=== PATIENT | male | born 1985 | race Caucasian/White ===

== ENCOUNTER 2020-03-16 12:50 | Inpatient (IN) | payer OTHER ==
[2020-03-16] VITALS (14 sets, daily range): BP systolic 85–134; BP diastolic 49–76
[~2020-03-16] VITALS: Ht 182.9 cm; Wt 137.6 kg
[2020-03-16] MEDS ORDERED: ACETAMINOPHEN 325 MG TABLET. PO PRN (13:15)
[2020-03-16] MEDS ORDERED: ONDANSETRON PF 4 MG/2 ML VIAL. IVP PRN (13:15)
--- NOTE | 2020-03-16 13:16 | PDOC1 ---
History and Physical Date of Admission Date of Admission DATE: 03/16/20 TIME: 13:16 Identification/Chief Complaint Chief Complaint Confusion, vomiting Source Source: Caregiver, Chart review, Patient History of Present Illness History of Present Illness Mr Mallory is a 34-year-old male w/ PMHx HTN, morbid obesity who presents to [place] [facility] with 3-day history of nausea vomiting. Patient was drinking 10-12 drinks per day of alcohol up until 3 days ago when the symptoms began. Patient denies any diarrhea or abdominal pain. Patient feels anxious and tremulous. Patient denies any fevers chills cough or exposure to COVID-19. Symptoms are worse with drinking and not better with anything. He has a long history of alcohol abuse dating back to college where he did quit temporarily when he took a semester of college. He has been drinking 10-12 beers since then until the end of 2018 when he was able to quit for 3 months but with the loss of his job and COVID-19 has started drinking very heavily again. He notes he was also drinking because he has had some pain and numbness and tingling in the posterior aspect of his right thigh that does not go below the knee. EKG normal sinus rhythm with rate [address] changes normal intervals Labs significant for WBC 12.7, Hb 16.1, platelets 291 MCV 101, bilirubin 3, AST 193, ALT 119, magnesium 0.9, calcium 10.2, sodium 115, K3.1, BUN 21, CR 1.9. Patient will need ICU monitoring IV fluids and electrolyte replacement. Past Medical History Cardiovascular: HTN Past Surgical History Past Surgical History: No pertinent history Family History Family History: Hypertension Social History Smoke: No ALCOHOL: heavy Drugs: None Allergies Allergies: Coded Allergies: cefaclor (Verified Allergy, Intermediate, Unknown, 03/16/20) ROS General: YES: Fatigue, Malaise; No: Chills, Night Sweats, Appetite, Other PSYCHOLOGICAL ROS: YES: Anxiety, Concentration difficultie, Memory difficulties ; No: Behavioral Disorder, Decreased libido, Depression, Disorientation, Hallucinations, Hostility, Irritablity, Mood Swings, Obsessive thoughts, Physical abuse, Sexual abuse, Sleep disturbances, Suicidal ideation, Other Eyes: No Blurry vision, No Decreased vision, No Double vision, No Dry eyes, No Excessive tearing, No Eye Pain, No Itchy Eyes, No Loss of vision, No Photophobia, No Scotomata, No Uses contacts, No Uses glasses, No Other HEENT: No: Heacaches, Visual Changes, Hearing change, Nasal congestion, Nasal discharge, Oral lesions, Sinus pain, Sore Throat, Epistaxis, Sneezing, Snoring, Tinnitus, Vertigo, Vocal changes, Other ALLERGY AND IMMUNOLOGY: No: Hives, Insect Bite Sensitivity, Itchy/Watery Eyes, Nasal Congestion, Post Nasal Drip, Seasonal Allergies, Other Hematological and Lymphatic: No: Bleeding Problems, Blood Clots, Blood Transfusions, Brusing, Night Sweats, Pallor, Swollen Lymph Nodes, Other ENDOCRINE: No: Breast Changes, Galactorrhea, Hair Pattern Changes, Hot Flashes, Malaise/lethargy, Mood Swings, Palpitations, Polydipsia/polyuria, Skin Changes, Temperature Intolerance, Unexpected Weight Changes, Other Breast: No New/Changing Breast Lumps, No Nipple changes, No Nipple discharge, No Other Respiratory: No: Cough, Hemoptysis, Orthopnea, Pleuritic Pain, Shortness of breath, SOB with excertion, Sputum Changes, Stridor, Tachypnea, Wheezing, Other Cardiovascular: No Chest Pain, No Palpitations, No Orthopnea, No Paroxysmal Noc. Dyspnea, No Edema, No Lt Headedness, No Other Gastrointestinal: Yes Nausea, Yes Vomiting; No Abdominal Pain, No Diarrhea, No Constipation, No Melena, No Hematochezia, No Other Genitourinary: No Dysuria, No Frequency, No Incontinence, No Hematuria, No Retention, No Discharge, No Urgency, No Pain, No Flank Pain, No Other, No , No , No , No , No , No , No Musculoskeletal: No Gait Disturbance, No Joint Pain, No Joint Stiffness, No Joint Swelling, No Muscle Pain, No Muscular Weakness, No Pain In:, No Swelling In:, No Other Neurological: No Behavorial Changes, No Bowel/Bladder ControlChng, No Confusion, No Dizziness, No Gait Disturbance, No Headaches, No Impaired Coord/balance, No Memory Loss, No Numbness/Tingling, No Seizures, No Speech Problems, No Tremors, No Visual Changes, No Weakness, No Other Skin: No Dry Skin, No Eczema, No Hair Changes, No Lumps, No Mole Changes, No Mottling, No Nail Changes, No Pruritus, No Rash, No Skin Lesion Changes, No Other, No Acne Physical Exam General: Alert, Cooperative, mild distress HEENT: Atraumatic, PERRLA, EOMI, Mucous membr. moist/pink Lungs: Clear to auscultation, Normal air movement Heart: S1S2, RRR, no thrills, no rubs, no gallops, no murmurs Abdomen: Normal bowel sounds, Soft, No tenderness, No hepatosplenomegaly, No masses Male Genitals Exam: normal genitalia, normal prostate Rectal Exam: not examined Extremities: No clubbing, No cyanosis, No edema, Normal pulses, No tenderness/swelling Skin: No rashes, No breakdown, No significant lesion Neuro: Normal gait, Normal speech, Strength at 5/5 X4 ext, Normal tone, Sensation intact, Cranial nerves 3-12 NL, Reflexes 2+ Psych/Mental Status: Other (Confused) VTE Prophylaxis Ordered VTE Prophylaxis Devices: No VTE Pharmacological Prophylaxi: No Assessment/Plan Assessment/Plan A/P: Acute metabolic encephalopathy -multifactorial secondary to mild alcohol withdrawal and hyponatremia as well as hypomagnesemia. NED -likely vasomotor nephropathy. Will monitor renal function after hydration Transaminitis - consistent with alcoholic hepatitis. Will monitor. Leukocytosis - likely reactive secondary to vomiting. Will monitor Hyponatremia - Likely alcohol related (beer potomania). Will obtain CT head given confusion as well. NSS ordered. Will consult nephrology Hypokalemia -likely related to concomitant diuretic use while drinking heavy alcohol. Will replace Hypomagnesemia - as above. Alcohol withdrawal - mild, will monitor on CIWA scale. Consult PAT team for moderate alcohol use disorder FEN - Regular diet PPX - ambulatory, low risk, scds FULL CODE Dispo - ICU for life-threatening electrolyte abnormalities CC time 48 Justifications for Admission Other Justification FRANCI BASS MD Mar 16, 2020 13:16
[2020-03-16] MEDS ORDERED: MAGNESIUM SULFATE 2GM 50 ML IV ONE (14:00)
[2020-03-16] MEDS: MULTIVIT INFUSN,ADULT 4,VIT K 10 ML, THIAMINE INJ 100 MG, FOLIC ACID INJ 1 MG in IV NOR... IV SCH (14:30)
[2020-03-16 20:19] LABS: ALBUMIN 3.8 g/dL (3.4-5.0); CREATININE 1.2 mg/dL (0.7-1.3); GFR 69.3; POTASSIUM 3.4 mmol/L (3.5-5.1); TOTAL BILIRUBIN 2.8 mg/dL (0.2-1.0); TOTAL PROTEIN 7.6 g/dL (6.4-8.2)
[2020-03-16] MEDS ORDERED: chlordiazePOXIDE HCL 25 MG CAPSULE PO PRN ×2 (20:45)
[2020-03-16] MEDS: HALOPERIDOL LACTATE 5 MG/ML VIAL. IVP PRN (21:06)
[2020-03-16] MEDS ORDERED: ZIPRASIDONE IM 20 MG VIAL. IM ONE ×2 (21:45→22:45)
[2020-03-16] MEDS: GABAPENTIN 300 MG CAPSULE. PO SCH (21:45)
[2020-03-16] MEDS ORDERED: POTASSIUM CHLORIDE IV ONE (22:00)
[2020-03-16] MEDS ORDERED: SODIUM CHLORIDE 3% IV ONE (22:00)
[2020-03-16] MEDS ORDERED: ATROPINE 0.5 MG/5 ML DISP.SYRINGE. IV PRN (22:45)
[2020-03-16] MEDS: DEXMEDETOMIDINE 400 MCG in IV NORMAL SALINE 100ML 96 ML IV PRN (23:10)
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
[2020-03-17] VITALS (24 sets, daily range): BP systolic 80–120; BP diastolic 47–90
[2020-03-17] MEDS: DEXMEDETOMIDINE 400 MCG in IV NORMAL SALINE 100ML 96 ML IV PRN ×5 (00:57→18:27)
[2020-03-17] MEDS: HALOPERIDOL LACTATE 5 MG/ML VIAL. IVP PRN (02:35)
--- NOTE | 2020-03-17 02:45 | NUR ---
Pt able to be switched from 4 point restraints to soft wrist restraints. Pt currently resting with eyes closed. Pt continues to be 1:1 observation as he will wake up suddenly and reach for IVs, throw legs over side of bed, and jerk arms around. Pt continues to be only alert and oriented to self. Will pass on and continue to monitor.
--- NOTE | 2020-03-17 04:30 | NUR ---
Precedex gtt titrated per protocol this shift. Once pt was relaxed and no longer anxious/agitated, pt began to snore and have apneic episodes. SPO2 dropped into the 80s with pt snoring, then would return to the 90s-100 when pt was breathing WNL. Pt placed on nasal canula, then venti mask. Both were titrated up on oxygen. Pt still not maintaining SPO2 during apneic episodes. Pt placed on BiPap by RT with CPAP setting of 15 and 40% FiO2. Pt now has SPO2 of 100%. Pt is not restless at this time and is resting comfortable. Pts current SBP is now noted to be in the 70s. Titrating down on Precedex per protocol and closely monitoring pt BP. Will continue with CIWA protocol, Precedex titration per protocol. Pt continues to be 1:1 observation due to impulsiveness. Will pass on and continue to monitor.
[2020-03-17 04:56] LABS: BASO % 0 % (0-3); EOS # 0.1 x10^3/uL (0.0-0.7); EOS % 1 % (0-3); HEMATOCRIT 37.1 % (39.0-53.0); HEMOGLOBIN 13.4 g/dL (13.0-17.5); LYMPH # 1.1 x10^3/uL (1.0-4.8); LYMPH % 14 % (24-48); MEAN CORPUSCULAR HEMOGLOBIN 37 pg (25-35); MEAN CORPUSCULAR HGB CONC 36 g/dL (31-37); MEAN CORPUSCULAR VOLUME 103 fL (79-100); MONO % 13 % (0-9); NEUT # 5.5 x10^3/uL (1.8-7.7); NEUT % 72 % (31-73); PLATELET COUNT 170 x10^3/uL (140-400); RED BLOOD COUNT 3.62 x10^6/uL (4.30-5.70); RED CELL DISTRIBUTION WIDTH 13.5 % (11.5-14.5); WHITE BLOOD COUNT 7.6 x10^3/uL (4.0-11.0)
[2020-03-17 05:08] LABS: PROTHROMBIN TIME PATIENT 14.3 SEC (11.7-14.0)
[2020-03-17 05:13] LABS: ALBUMIN 3.4 g/dL (3.4-5.0); CALCIUM 8.1 mg/dL (8.5-10.1); GFR 85.5; MAGNESIUM 2.2 mg/dL (1.8-2.4); POTASSIUM 3.4 mmol/L (3.5-5.1); TOTAL BILIRUBIN 2.4 mg/dL (0.2-1.0); TOTAL PROTEIN 6.7 g/dL (6.4-8.2)
--- NOTE | 2020-03-17 05:28 | NUR ---
Pt sodium level this am is up to 119 from 115. Continue POC per Dr. Khan, as this is within expected results of hypertonic solution administration.
[2020-03-17] MEDS: MULTIVIT INFUSN,ADULT 4,VIT K 10 ML, THIAMINE INJ 100 MG, FOLIC ACID INJ 1 MG in IV NOR... IV SCH (07:38)
[2020-03-17] MEDS ORDERED: NOREPINEPHRINE VIAL 8 MG in IV DEXTROSE 5% 250 ML IV PRN (08:00)
[2020-03-17] MEDS ORDERED: IV NORMAL SALINE 1000ML BAG 1,000 ML IV ONE ×2 (08:00→17:45)
--- NOTE | 2020-03-17 08:03 | PDOC ---
PROGRESS NOTES Date of Service: DATE: 03/17/20 TIME: 08:00 Chief Complaint Chief Complaint History of Present Illness Mr Mallory is a 34-year-old male w/ PMHx HTN, morbid obesity who presents to [place] ED with 3-day history of nausea vomiting. Patient was drinking 10-12 drinks per day of alcohol up until 3 days ago when the symptoms began. Patient denies any diarrhea or abdominal pain. Patient feels anxious and tremulous. Patient denies any fevers chills cough or exposure to COVID-19. Symptoms are worse with drinking and not better with anything. He has a long history of alcohol abuse dating back to college where he did quit temporarily when he took a semester of college. He has been drinking 10-12 beers since then until the end of 2018 when he was able to quit for 3 months but with the loss of his job and COVID-19 has started drinking very heavily again. He notes he was also drinking because he has had some pain and numbness and tingling in the posterior aspect of his right thigh that does not go below the knee. EKG normal sinus rhythm with rate [address] changes normal intervals Labs significant for WBC 12.7, Hb 16.1, platelets 291 MCV 101, bilirubin 3, AST 193, ALT 119, magnesium 0.9, calcium 10.2, sodium 115, K3.1, BUN 21, CR 1.9. Patient will need ICU monitoring IV fluids and electrolyte replacement. 03/17/2020 Patient with improved sodium, agitated overnight, currenlty on Bipap in no acute distress, discussed with RN at bedside. History of Present Illness History of Present Illness Assessment/Plan A/P: Acute metabolic encephalopathy -multifactorial secondary to mild alcohol withdrawal and hyponatremia as well as hypomagnesemia. NED -likely vasomotor nephropathy. Will monitor renal function after hydration Transaminitis - consistent with alcoholic hepatitis. Will monitor. Leukocytosis - likely reactive secondary to vomiting. Will monitor Hyponatremia - Likely alcohol related (beer potomania). NSS ordered. Will consult nephrology, CT head still pending given his instability Hypokalemia -likely related to concomitant diuretic use while drinking heavy alcohol. Will replace Hypomagnesemia - as above. Alcohol withdrawal - severe, will monitor on CIWA scale. Consult PAT team for moderate alcohol use disorder FEN - Regular diet PPX - ambulatory, low risk, scds FULL CODE Dispo - ICU for life-threatening electrolyte abnormalities Vitals Vitals Vital Signs Date Time Temp Pulse Resp B/P (MAP) Pulse Ox O2 Delivery O2 Flow Rate FiO2 03/17/20 07:00 97.7 68 20 89/52 (64) 100 BiPAP/CPAP 97.7 03/17/20 03:30 12.0 Physical Exam General: No acute distress, Other (sedated) Heart: Regular rate, Normal S1, Normal S2 Lungs: Clear Abdomen: Normal bowel sounds, Soft, No tenderness, No hepatosplenomegaly, No masses Extremities: No clubbing, No cyanosis, No edema, Normal pulses, No tenderness/swelling Skin: No rashes, No breakdown, No significant lesion Labs LABS Laboratory Tests Test 03/16/20 20:00 03/17/20 03:45 Sodium Level 115 mmol/L (136-145) 119 mmol/L (136-145) Potassium Level 3.4 mmol/L (3.5-5.1) 3.4 mmol/L (3.5-5.1) Chloride Level 77 mmol/L (98-107) 80 mmol/L (98-107) Carbon Dioxide Level 32 mmol/L (21-32) 36 mmol/L (21-32) Anion Gap 6 (6-14) 3 (6-14) Blood Urea Nitrogen 23 mg/dL (8-26) 24 mg/dL (8-26) Creatinine 1.2 mg/dL (0.7-1.3) 1.0 mg/dL (0.7-1.3) Estimated GFR (Cockcroft-Gault) 69.3 85.5 BUN/Creatinine Ratio 19 (6-20) 24 (6-20) Glucose Level 119 mg/dL (70-99) 130 mg/dL (70-99) Calcium Level 9.0 mg/dL (8.5-10.1) 8.1 mg/dL (8.5-10.1) Magnesium Level 2.4 mg/dL (1.8-2.4) 2.2 mg/dL (1.8-2.4) Total Bilirubin 2.8 mg/dL (0.2-1.0) 2.4 mg/dL (0.2-1.0) Aspartate Amino Transf (AST/SGOT) 147 U/L (15-37) 143 U/L (15-37) Alanine Aminotransferase (ALT/SGPT) 94 U/L (16-63) 86 U/L (16-63) Alkaline Phosphatase 71 U/L (46-116) 68 U/L (46-116) Total Protein 7.6 g/dL (6.4-8.2) 6.7 g/dL (6.4-8.2) Albumin 3.8 g/dL (3.4-5.0) 3.4 g/dL (3.4-5.0) Albumin/Globulin Ratio 1.0 (1.0-1.7) 1.0 (1.0-1.7) White Blood Count 7.6 x10^3/uL (4.0-11.0) Red Blood Count 3.62 x10^6/uL (4.30-5.70) Hemoglobin 13.4 g/dL (13.0-17.5) Hematocrit 37.1 % (39.0-53.0) Mean Corpuscular Volume 103 fL (79-100) Mean Corpuscular Hemoglobin 37 pg (25-35) Mean Corpuscular Hemoglobin Concent 36 g/dL (31-37) Red Cell Distribution Width 13.5 % (11.5-14.5) Platelet Count 170 x10^3/uL (140-400) Neutrophils (%) (Auto) 72 % (31-73) Lymphocytes (%) (Auto) 14 % (24-48) Monocytes (%) (Auto) 13 % (0-9) Eosinophils (%) (Auto) 1 % (0-3) Basophils (%) (Auto) 0 % (0-3) Neutrophils # (Auto) 5.5 x10^3/uL (1.8-7.7) Lymphocytes # (Auto) 1.1 x10^3/uL (1.0-4.8) Monocytes # (Auto) 1.0 x10^3/uL (0.0-1.1) Eosinophils # (Auto) 0.1 x10^3/uL (0.0-0.7) Basophils # (Auto) 0.0 x10^3/uL (0.0-0.2) Prothrombin Time 14.3 SEC (11.7-14.0) Prothromb Time International Ratio 1.2 (0.8-1.1) Comment Review of Relevant I have reviewed the following items malathi (where applicable) has been applied. Labs Laboratory Tests Test 03/16/20 20:00 03/17/20 03:45 Sodium Level 115 mmol/L (136-145) 119 mmol/L (136-145) Potassium Level 3.4 mmol/L (3.5-5.1) 3.4 mmol/L (3.5-5.1) Chloride Level 77 mmol/L (98-107) 80 mmol/L (98-107) Carbon Dioxide Level 32 mmol/L (21-32) 36 mmol/L (21-32) Anion Gap 6 (6-14) 3 (6-14) Blood Urea Nitrogen 23 mg/dL (8-26) 24 mg/dL (8-26) Creatinine 1.2 mg/dL (0.7-1.3) 1.0 mg/dL (0.7-1.3) Estimated GFR (Cockcroft-Gault) 69.3 85.5 BUN/Creatinine Ratio 19 (6-20) 24 (6-20) Glucose Level 119 mg/dL (70-99) 130 mg/dL (70-99) Calcium Level 9.0 mg/dL (8.5-10.1) 8.1 mg/dL (8.5-10.1) Magnesium Level 2.4 mg/dL (1.8-2.4) 2.2 mg/dL (1.8-2.4) Total Bilirubin 2.8 mg/dL (0.2-1.0) 2.4 mg/dL (0.2-1.0) Aspartate Amino Transf (AST/SGOT) 147 U/L (15-37) 143 U/L (15-37) Alanine Aminotransferase (ALT/SGPT) 94 U/L (16-63) 86 U/L (16-63) Alkaline Phosphatase 71 U/L (46-116) 68 U/L (46-116) Total Protein 7.6 g/dL (6.4-8.2) 6.7 g/dL (6.4-8.2) Albumin 3.8 g/dL (3.4-5.0) 3.4 g/dL (3.4-5.0) Albumin/Globulin Ratio 1.0 (1.0-1.7) 1.0 (1.0-1.7) White Blood Count 7.6 x10^3/uL (4.0-11.0) Red Blood Count 3.62 x10^6/uL (4.30-5.70) Hemoglobin 13.4 g/dL (13.0-17.5) Hematocrit 37.1 % (39.0-53.0) Mean Corpuscular Volume 103 fL (79-100) Mean Corpuscular Hemoglobin 37 pg (25-35) Mean Corpuscular Hemoglobin Concent 36 g/dL (31-37) Red Cell Distribution Width 13.5 % (11.5-14.5) Platelet Count 170 x10^3/uL (140-400) Neutrophils (%) (Auto) 72 % (31-73) Lymphocytes (%) (Auto) 14 % (24-48) Monocytes (%) (Auto) 13 % (0-9) Eosinophils (%) (Auto) 1 % (0-3) Basophils (%) (Auto) 0 % (0-3) Neutrophils # (Auto) 5.5 x10^3/uL (1.8-7.7) Lymphocytes # (Auto) 1.1 x10^3/uL (1.0-4.8) Monocytes # (Auto) 1.0 x10^3/uL (0.0-1.1) Eosinophils # (Auto) 0.1 x10^3/uL (0.0-0.7) Basophils # (Auto) 0.0 x10^3/uL (0.0-0.2) Prothrombin Time 14.3 SEC (11.7-14.0) Prothromb Time International Ratio 1.2 (0.8-1.1) Laboratory Tests Test 03/16/20 20:00 03/17/20 03:45 Sodium Level 115 mmol/L (136-145) 119 mmol/L (136-145) Potassium Level 3.4 mmol/L (3.5-5.1) 3.4 mmol/L (3.5-5.1) Chloride Level 77 mmol/L (98-107) 80 mmol/L (98-107) Carbon Dioxide Level 32 mmol/L (21-32) 36 mmol/L (21-32) Anion Gap 6 (6-14) 3 (6-14) Blood Urea Nitrogen 23 mg/dL (8-26) 24 mg/dL (8-26) Creatinine 1.2 mg/dL (0.7-1.3) 1.0 mg/dL (0.7-1.3) Estimated GFR (Cockcroft-Gault) 69.3 85.5 BUN/Creatinine Ratio 19 (6-20) 24 (6-20) Glucose Level 119 mg/dL (70-99) 130 mg/dL (70-99) Calcium Level 9.0 mg/dL (8.5-10.1) 8.1 mg/dL (8.5-10.1) Magnesium Level 2.4 mg/dL (1.8-2.4) 2.2 mg/dL (1.8-2.4) Total Bilirubin 2.8 mg/dL (0.2-1.0) 2.4 mg/dL (0.2-1.0) Aspartate Amino Transf (AST/SGOT) 147 U/L (15-37) 143 U/L (15-37) Alanine Aminotransferase (ALT/SGPT) 94 U/L (16-63) 86 U/L (16-63) Alkaline Phosphatase 71 U/L (46-116) 68 U/L (46-116) Total Protein 7.6 g/dL (6.4-8.2) 6.7 g/dL (6.4-8.2) Albumin 3.8 g/dL (3.4-5.0) 3.4 g/dL (3.4-5.0) Albumin/Globulin Ratio 1.0 (1.0-1.7) 1.0 (1.0-1.7) White Blood Count 7.6 x10^3/uL (4.0-11.0) Red Blood Count 3.62 x10^6/uL (4.30-5.70) Hemoglobin 13.4 g/dL (13.0-17.5) Hematocrit 37.1 % (39.0-53.0) Mean Corpuscular Volume 103 fL (79-100) Mean Corpuscular Hemoglobin 37 pg (25-35) Mean Corpuscular Hemoglobin Concent 36 g/dL (31-37) Red Cell Distribution Width 13.5 % (11.5-14.5) Platelet Count 170 x10^3/uL (140-400) Neutrophils (%) (Auto) 72 % (31-73) Lymphocytes (%) (Auto) 14 % (24-48) Monocytes (%) (Auto) 13 % (0-9) Eosinophils (%) (Auto) 1 % (0-3) Basophils (%) (Auto) 0 % (0-3) Neutrophils # (Auto) 5.5 x10^3/uL (1.8-7.7) Lymphocytes # (Auto) 1.1 x10^3/uL (1.0-4.8) Monocytes # (Auto) 1.0 x10^3/uL (0.0-1.1) Eosinophils # (Auto) 0.1 x10^3/uL (0.0-0.7) Basophils # (Auto) 0.0 x10^3/uL (0.0-0.2) Prothrombin Time 14.3 SEC (11.7-14.0) Prothromb Time International Ratio 1.2 (0.8-1.1) Medications Current Medications Potassium Chloride/Sodium Chloride 1,000 ml @ 100 mls/hr Q10H IV Last administered on 03/16/20at 15:15; Start 03/16/20 at 14:00; Stop 03/16/20 at 20:39; Status DC Ondansetron HCl (Zofran) 4 mg PRN Q6HRS PRN IVP NAUSEA/VOMITING; Start 03/16/20 at 13:15 Acetaminophen (Tylenol) 650 mg PRN Q6HRS PRN PO Headaches, Temp > 101.5F; Start 03/16/20 at 13:15 Multivitamins 10 ml/Thiamine HCl 100 mg/Folic Acid 1 mg/Sodium Chloride 1,011.2 ml @ 100 mls/ hr DAILY IV Last administered on 03/17/20at 07:38; Start 03/16/20 at 14:30; Stop 03/20/20 at 19:07 Lorazepam (Ativan) 2 mg PRN Q1HR PRN PO For CIWA 8-14; Start 03/16/20 at 13:15 Lorazepam (Ativan Inj) 1 mg PRN Q1HR PRN IV For CIWA 8-14 Last administered on 03/16/20at 19:25; Start 03/16/20 at 13:15 Haloperidol Lactate (Haldol Inj) 5 mg PRN Q4HRS PRN IVP Halluc inatns,Confusn,Delirium Last administered on 03/17/20at 02:35; Start 03/16/20 at 13:15 Magnesium Sulfate 50 ml @ 25 mls/hr 1X ONCE IV Last administered on 03/16/20at 14:16; Start 03/16/20 at 14:00; Stop 03/16/20 at 15:59; Status DC Lorazepam (Ativan) 4 mg PRN Q1HR PRN PO For CIWA 8-14; Start 03/16/20 at 20:15 Lorazepam (Ativan Inj) 2 mg PRN Q1HR PRN IV For CIWA 8-14; Start 03/16/20 at 20:15; Status UNV Lorazepam (Ativan Inj) 2 mg PRN Q4HRS PRN IVP HALLUCINATIONS Last administered on 03/16/20at 20:11; Start 03/16/20 at 20:15 Potassium Chloride 20 meq/ Sodium Chloride 510 ml @ 20 mls/hr 1X ONCE IV Last administered on 03/16/20at 21:15; Start 03/16/20 at 22:00; Stop 03/17/20 at 23:29 Chlordiazepoxide (Librium) 50 mg PRN Q1HR PRN PO For CIWA 8-14; Start 03/16/20 at 20:45; Stop 03/16/20 at 21:28; Status DC Chlordiazepoxide (Librium) 100 mg PRN Q1HR PRN PO For CIWA 15 or greater; Start 03/16/20 at 20:45; Stop 03/16/20 at 21:28; Status DC Lorazepam (Ativan) 8 mg PRN Q1HR PRN PO For CIWA 15 or greater; Start 03/16/20 at 21:30 Lorazepam (Ativan Inj) 4 mg PRN Q1HR PRN IV For CIWA 15 or greater Last administered on 03/17/20at 02:35; Start 03/16/20 at 21:30 Gabapentin (Neurontin) 300 mg TID PO ; Start 03/16/20 at 21:45 Ziprasidone (Geodon Im) 40 mg 1X ONCE IM Last administered on 03/16/20at 21:58; Start 03/16/20 at 21:45; Stop 03/16/20 at 21:46; Status DC Ziprasidone (Geodon Im) 40 mg PRN 1X ONCE IM ; Start 03/16/20 at 22:45; Stop 03/16/20 at 22:46; Status DC Dexmedetomidine HCl 400 mcg/ Sodium Chloride 100 ml @ 0 mls/hr CONT PRN IV agitation Last administered on 03/17/20at 06:53; Start 03/16/20 at 22:45 Atropine Sulfate (ATROPINE 0.5mg SYRINGE) 0.5 mg PRN Q5MIN PRN IV SEE COMMENTS; Start 03/16/20 at 22:45 Vitals/I & O Vital Sign - Last 24 Hours 03/16/20 03/16/20 03/16/20 03/16/20 12:45 13:00 13:15 13:30 Temp 97.9 97.9 Pulse 100 98 98 102 Resp 18 18 18 18 B/P (MAP) 101/49 (66) 96/51 (66) 106/74 (85) 104/59 (74) Pulse Ox 99 99 99 95 O2 Delivery Room Air Room Air Room Air Room Air 03/16/20 03/16/20 03/16/20 03/16/20 14:00 14:49 15:21 16:20 Pulse 92 95 Resp 18 18 B/P (MAP) 114/64 (81) 111/64 (80) Pulse Ox 96 98 O2 Delivery Room Air Room Air Room Air Room Air 03/16/20 03/16/20 03/16/20 03/16/20 16:21 17:00 18:00 19:00 Pulse 97 96 96 93 Resp 18 18 18 21 B/P (MAP) 118/63 (81) 107/63 (78) 134/76 (95) 113/67 (82) Pulse Ox 97 97 98 97 O2 Delivery Room Air Room Air Room Air Room Air 03/16/20 03/16/20 03/16/20 03/16/20 20:00 20:00 21:00 22:00 Temp 98.1 98.1 Pulse 93 91 86 Resp 21 26 20 B/P (MAP) 113/67 (82) 106/70 (82) 104/59 (74) Pulse Ox 97 95 97 O2 Delivery Room Air Room Air Room Air Room Air 03/16/20 03/16/20 03/16/20 03/16/20 23:00 23:00 23:15 23:30 Temp 98 98 98 Pulse 87 98 86 86 Resp 18 19 B/P (MAP) 85/54 (64) Pulse Ox 96 O2 Delivery Nasal Cannula O2 Flow Rate 4.0 03/16/20 03/16/20 03/17/20 03/17/20 23:45 23:59 00:00 00:15 Temp 98 Pulse 92 94 88 Resp 19 33 18 O2 Delivery Room Air 03/17/20 03/17/20 03/17/20 03/17/20 00:30 00:45 01:00 01:15 Temp 98 98 98 Pulse 88 88 78 78 Resp 18 18 19 18 B/P (MAP) 104/61 (75) Pulse Ox 100 O2 Delivery Nasal Cannula O2 Flow Rate 4.0 03/17/20 03/17/20 03/17/20 03/17/20 01:30 02:00 02:30 03:00 Temp 97.8 97.8 Pulse 72 78 75 76 Resp B/P (MAP) 87/67 (74) 118/73 (88) 100/74 (83) Pulse Ox 95 95 93 O2 Delivery Venturi Mask NonRebreather Mask NonRebreather Mask O2 Flow Rate 9.0 12.0 9.0 03/17/20 03/17/20 03/17/20 03/17/20 03:30 04:00 04:00 04:06 Temp 97.6 97.6 Pulse 78 Resp B/P (MAP) 113/69 (84) Pulse Ox 93 97 98 O2 Delivery NonRebreather Mask Room Air Nasal Cannula BiPAP/CPAP O2 Flow Rate 12.0 03/17/20 03/17/20 03/17/20 04:51 05:57 07:00 Temp 97.6 97.7 97.6 97.7 Pulse 71 19 68 Resp 20 B/P (MAP) 96/62 (73) 87/55 (66) 89/52 (64) Pulse Ox 100 100 100 O2 Delivery BiPAP/CPAP BiPAP/CPAP BiPAP/CPAP Intake and Output 03/16/20 03/16/20 03/17/20 15:00 23:00 07:00 Intake Total 200 ml 740 ml 914.8 ml Output Total 100 ml 0 ml 175 ml Balance 100 ml 740 ml 739.8 ml Justicifation of Admission Dx: Justifications for Admission: Justification of Admission Dx: Yes Chronic Renal Failure: Electrolyte Abnormality BARRETT ROCHA MD Mar 17, 2020 08:03
[2020-03-17] MEDS: GABAPENTIN 300 MG CAPSULE. PO SCH ×3 (09:00→21:00)
--- NOTE | 2020-03-17 09:18 | PDOC2 ---
CONSULT Date of Consult Date of Consult DATE: 03/17/20 TIME: 09:15 Reason for Consult Reason for Consult: Hyponatremia /NED Identification/Chief Complaint Chief Complaint Unable to Obtain, sedated Source Source: Chart review History of Present Illness Reason for Visit: Pt is a 34-year-old male w/ PMHx HTN, morbid obesity who presents to [facility] with 3-day history of nausea vomiting. Patient was drinking 10-12 drinks per day of alcohol up until 3 days ago when the symptoms began. Patient denies any diarrhea or abdominal pain. Patient feels anxious and tremulous. Patient katharina es any fevers chills cough or exposure to COVID-19. Symptoms are worse with drinking and not better with anything. He has a long history of alcohol abuse dating back to college where he did quit temporarily when he took a semester of college. He has been drinking 10-12 beers since then until the end of 2018 when he was able to quit for 3 months but with the loss of his job and COVID-19 has started drinking very heavily again. He notes he was also drinking because he has had some pain and numbness and tingling in the posterior aspect of his right thigh that does not go below the knee. He has been taking Lorazepam and Clonazepam prn for anxiety but may have been taking it every day recently reported by Pts mother Hx Obtained from chart review and family member at bedside(poor Historian) Past Medical History Cardiovascular: HTN Past Surgical History Past Surgical History: No pertinent history Family History Family History: Hypertension Social History No ALCOHOL: heavy Drugs: None Current Medications Current Medications Current Medications Potassium Chloride/Sodium Chloride 1,000 ml @ 100 mls/hr Q10H IV Last administered on 03/16/20at 15:15; Start 03/16/20 at 14:00; Stop 03/16/20 at 20:39; Status DC Ondansetron HCl (Zofran) 4 mg PRN Q6HRS PRN IVP NAUSEA/VOMITING; Start 03/16/20 at 13:15 Acetaminophen (Tylenol) 650 mg PRN Q6HRS PRN PO Headaches, Temp > 101.5F; Start 03/16/20 at 13:15 Multivitamins 10 ml/Thiamine HCl 100 mg/Folic Acid 1 mg/Sodium Chloride 1,011.2 ml @ 100 mls/ hr DAILY IV Last administered on 03/17/20at 07:38; Start 03/16/20 at 14:30; Stop 03/20/20 at 19:07 Lorazepam (Ativan) 2 mg PRN Q1HR PRN PO For CIWA 8-14; Start 03/16/20 at 13:15 Lorazepam (Ativan Inj) 1 mg PRN Q1HR PRN IV For CIWA 8-14 Last administered on 03/16/20at 19:25; Start 03/16/20 at 13:15 Haloperidol Lactate (Haldol Inj) 5 mg PRN Q4HRS PRN IVP Hallucinatns,Confusn,Delirium Last administered on 03/17/20at 02:35; Start 03/16/20 at 13:15 Magnesium Sulfate 50 ml @ 25 mls/hr 1X ONCE IV Last administered on 03/16/20at 14:16; Start 03/16/20 at 14:00; Stop 03/16/20 at 15:59; Status DC Lorazepam (Ativan) 4 mg PRN Q1HR PRN PO For CIWA 8-14; Start 03/16/20 at 20:15 Lorazepam (Ativan Inj) 2 mg PRN Q1HR PRN IV For CIWA 8-14; Start 03/16/20 at 20:15; Status UNV Lorazepam (Ativan Inj) 2 mg PRN Q4HRS PRN IVP HALLUCINATIONS Last administered on 03/16/20at 20:11; Start 03/16/20 at 20:15 Potassium Chloride 20 meq/ Sodium Chloride 510 ml @ 20 mls/hr 1X ONCE IV Last administered on 03/16/20at 21:15; Start 03/16/20 at 22:00; Stop 03/17/20 at 23:29 Chlordiazepoxide (Librium) 50 mg PRN Q1HR PRN PO For CIWA 8-14; Start 03/16/20 at 20:45; Stop 03/16/20 at 21:28; Status DC Chlordiazepoxide (Librium) 100 mg PRN Q1HR PRN PO For CIWA 15 or greater; Start 03/16/20 at 20:45; Stop 03/16/20 at 21:28; Status DC Lorazepam (Ativan) 8 mg PRN Q1HR PRN PO For CIWA 15 or greater; Start 03/16/20 at 21:30 Lorazepam (Ativan Inj) 4 mg PRN Q1HR PRN IV For CIWA 15 or greater Last administered on 03/17/20at 02:35; Start 03/16/20 at 21:30 Gabapentin (Neurontin) 300 mg TID PO ; Start 03/16/20 at 21:45 Ziprasidone (Geodon Im) 40 mg 1X ONCE IM Last administered on 03/16/20at 21:58; Start 03/16/20 at 21:45; Stop 03/16/20 at 21:46; Status DC Ziprasidone (Geodon Im) 40 mg PRN 1X ONCE IM ; Start 03/16/20 at 22:45; Stop 03/16/20 at 22:46; Status DC Dexmedetomidine HCl 400 mcg/ Sodium Chloride 100 ml @ 0 mls/hr CONT PRN IV agitation Last administered on 03/17/20at 06:53; Start 03/16/20 at 22:45 Atropine Sulfate (ATROPINE 0.5mg SYRINGE) 0.5 mg PRN Q5MIN PRN IV SEE COMMENTS; Start 03/16/20 at 22:45 Sodium Chloride 1,000 ml @ 999 mls/hr 1X ONCE IV ; Start 03/17/20 at 08:00; Stop 03/17/20 at 09:00; Status DC Norepinephrine Bitartrate 8 mg/ Dextrose 258 ml @ 26.838 mls/ hr CONT PRN IV PER PROTOCOL; Start 03/17/20 at 08:00 Allergies Allergies: Coded Allergies: cefaclor (Verified Allergy, Intermediate, Unknown, 03/16/20) ROS Review of System As per HPI, rest of the ROS is negative Physical Exam Physical Exam General: Agitated HEENT: OM moist , On Bipap Neck supple Lungs: Clear to auscultation anteriorly Heart: S1S2, RRR, Extremities: No clubbing, No cyanosis, No edema, Skin: No rash Neuro: grossly normal Psych/Mental Status: sedated , agitated JEREMY Sextoney + Vital Signs Vital Signs Date Time Temp Pulse Resp B/P (MAP) Pulse Ox O2 Delivery O2 Flow Rate FiO2 03/17/20 09:01 65 17 91/59 (70) 100 BiPAP/CPAP 03/17/20 07:00 97.7 97.7 03/17/20 03:30 12.0 Assessment & Plan NED - Vasomotor Renal function improved, uop initialyy reported low, Lindsey was kinked, Monitor Supportive care, Strict I/O, avoid Nephrotoxins HypoNatremia- severe Improving with 3% , monitor closely Dw RN Hypotension- requiring pressors Acute metabolic encephalopathy -multifactorial secondary to mild alcohol withdrawal Transaminitis - consistent with alcoholic hepatitis Hypokalemia diuretic use and drinking heavy alcohol. Replace asm indicated Hypomagnesemia - replace as indicated ETOH- Alcohol withdrawal Labs Labs Laboratory Tests Test 03/16/20 20:00 03/17/20 03:45 Sodium Level 115 mmol/L (136-145) 119 mmol/L (136-145) Potassium Level 3.4 mmol/L (3.5-5.1) 3.4 mmol/L (3.5-5.1) Chloride Level 77 mmol/L (98-107) 80 mmol/L (98-107) Carbon Dioxide Level 32 mmol/L (21-32) 36 mmol/L (21-32) Anion Gap 6 (6-14) 3 (6-14) Blood Urea Nitrogen 23 mg/dL (8-26) 24 mg/dL (8-26) Creatinine 1.2 mg/dL (0.7-1.3) 1.0 mg/dL (0.7-1.3) Estimated GFR (Cockcroft-Gault) 69.3 85.5 BUN/Creatinine Ratio 19 (6-20) 24 (6-20) Glucose Level 119 mg/dL (70-99) 130 mg/dL (70-99) Calcium Level 9.0 mg/dL (8.5-10.1) 8.1 mg/dL (8.5-10.1) Magnesium Level 2.4 mg/dL (1.8-2.4) 2.2 mg/dL (1.8-2.4) Total Bilirubin 2.8 mg/dL (0.2-1.0) 2.4 mg/dL (0.2-1.0) Aspartate Amino Transf (AST/SGOT) 147 U/L (15-37) 143 U/L (15-37) Alanine Aminotransferase (ALT/SGPT) 94 U/L (16-63) 86 U/L (16-63) Alkaline Phosphatase 71 U/L (46-116) 68 U/L (46-116) Total Protein 7.6 g/dL (6.4-8.2) 6.7 g/dL (6.4-8.2) Albumin 3.8 g/dL (3.4-5.0) 3.4 g/dL (3.4-5.0) Albumin/Globulin Ratio 1.0 (1.0-1.7) 1.0 (1.0-1.7) White Blood Count 7.6 x10^3/uL (4.0-11.0) Red Blood Count 3.62 x10^6/uL (4.30-5.70) Hemoglobin 13.4 g/dL (13.0-17.5) Hematocrit 37.1 % (39.0-53.0) Mean Corpuscular Volume 103 fL (79-100) Mean Corpuscular Hemoglobin 37 pg (25-35) Mean Corpuscular Hemoglobin Concent 36 g/dL (31-37) Red Cell Distribution Width 13.5 % (11.5-14.5) Platelet Count 170 x10^3/uL (140-400) Neutrophils (%) (Auto) 72 % (31-73) Lymphocytes (%) (Auto) 14 % (24-48) Monocytes (%) (Auto) 13 % (0-9) Eosinophils (%) (Auto) 1 % (0-3) Basophils (%) (Auto) 0 % (0-3) Neutrophils # (Auto) 5.5 x10^3/uL (1.8-7.7) Lymphocytes # (Auto) 1.1 x10^3/uL (1.0-4.8) Monocytes # (Auto) 1.0 x10^3/uL (0.0-1.1) Eosinophils # (Auto) 0.1 x10^3/uL (0.0-0.7) Basophils # (Auto) 0.0 x10^3/uL (0.0-0.2) Prothrombin Time 14.3 SEC (11.7-14.0) Prothromb Time International Ratio 1.2 (0.8-1.1) Laboratory Tests Test 03/16/20 20:00 03/17/20 03:45 Sodium Level 115 mmol/L (136-145) 119 mmol/L (136-145) Potassium Level 3.4 mmol/L (3.5-5.1) 3.4 mmol/L (3.5-5.1) Chloride Level 77 mmol/L (98-107) 80 mmol/L (98-107) Carbon Dioxide Level 32 mmol/L (21-32) 36 mmol/L (21-32) Anion Gap 6 (6-14) 3 (6-14) Blood Urea Nitrogen 23 mg/dL (8-26) 24 mg/dL (8-26) Creatinine 1.2 mg/dL (0.7-1.3) 1.0 mg/dL (0.7-1.3) Estimated GFR (Cockcroft-Gault) 69.3 85.5 BUN/Creatinine Ratio 19 (6-20) 24 (6-20) Glucose Level 119 mg/dL (70-99) 130 mg/dL (70-99) Calcium Level 9.0 mg/dL (8.5-10.1) 8.1 mg/dL (8.5-10.1) Magnesium Level 2.4 mg/dL (1.8-2.4) 2.2 mg/dL (1.8-2.4) Total Bilirubin 2.8 mg/dL (0.2-1.0) 2.4 mg/dL (0.2-1.0) Aspartate Amino Transf (AST/SGOT) 147 U/L (15-37) 143 U/L (15-37) Alanine Aminotransferase (ALT/SGPT) 94 U/L (16-63) 86 U/L (16-63) Alkaline Phosphatase 71 U/L (46-116) 68 U/L (46-116) Total Protein 7.6 g/dL (6.4-8.2) 6.7 g/dL (6.4-8.2) Albumin 3.8 g/dL (3.4-5.0) 3.4 g/dL (3.4-5.0) Albumin/Globulin Ratio 1.0 (1.0-1.7) 1.0 (1.0-1.7) White Blood Count 7.6 x10^3/uL (4.0-11.0) Red Blood Count 3.62 x10^6/uL (4.30-5.70) Hemoglobin 13.4 g/dL (13.0-17.5) Hematocrit 37.1 % (39.0-53.0) Mean Corpuscular Volume 103 fL (79-100) Mean Corpuscular Hemoglobin 37 pg (25-35) Mean Corpuscular Hemoglobin Concent 36 g/dL (31-37) Red Cell Distribution Width 13.5 % (11.5-14.5) Platelet Count 170 x10^3/uL (140-400) Neutrophils (%) (Auto) 72 % (31-73) Lymphocytes (%) (Auto) 14 % (24-48) Monocytes (%) (Auto) 13 % (0-9) Eosinophils (%) (Auto) 1 % (0-3) Basophils (%) (Auto) 0 % (0-3) Neutrophils # (Auto) 5.5 x10^3/uL (1.8-7.7) Lymphocytes # (Auto) 1.1 x10^3/uL (1.0-4.8) Monocytes # (Auto) 1.0 x10^3/uL (0.0-1.1) Eosinophils # (Auto) 0.1 x10^3/uL (0.0-0.7) Basophils # (Auto) 0.0 x10^3/uL (0.0-0.2) Prothrombin Time 14.3 SEC (11.7-14.0) Prothromb Time International Ratio 1.2 (0.8-1.1) Review All relevant outside records, renal labs, imaging studies, telemetry/EKG's were reviewed. DARYL RODRIGES MD Mar 17, 2020 09:18
[2020-03-17 09:49] LABS: CALCIUM 7.8 mg/dL (8.5-10.1); CREATININE 1.3 mg/dL (0.7-1.3); GFR 63.2; POTASSIUM 3.2 mmol/L (3.5-5.1)
--- NOTE | 2020-03-17 11:27 | NUR ---
SS following for discharge planning. SS reviewed pt chart and discussed with pt RN. Pt is from home and is currently on BIPAP. Pt has ETOH abuse and low sodium. PAT team referral made for ETOH. Pt is self pay. SS will continue to follow for discharge planning.
[2020-03-17 13:59] LABS: CALCIUM 7.9 mg/dL (8.5-10.1); CREATININE 1.3 mg/dL (0.7-1.3); GFR 63.2; POTASSIUM 3.2 mmol/L (3.5-5.1)
[2020-03-17] MEDS: IV RINGERS,LACTATED 1000ML 1,000 ML IV SCH (19:08)
[2020-03-17 20:35] LABS: CALCIUM 8.1 mg/dL (8.5-10.1); CREATININE 0.9 mg/dL (0.7-1.3); GFR 96.6; POTASSIUM 3.7 mmol/L (3.5-5.1)
[2020-03-18] VITALS (16 sets, daily range): BP systolic 85–140; BP diastolic 48–83
[2020-03-18] MEDS: DEXMEDETOMIDINE 400 MCG in IV NORMAL SALINE 100ML 96 ML IV PRN (03:20)
[2020-03-18] MEDS: IV RINGERS,LACTATED 1000ML 1,000 ML IV SCH (03:20)
[2020-03-18 04:39] LABS: ALBUMIN 3.2 g/dL (3.4-5.0); CALCIUM 8.7 mg/dL (8.5-10.1); CREATININE 0.9 mg/dL (0.7-1.3); GFR 96.6; POTASSIUM 3.4 mmol/L (3.5-5.1); TOTAL BILIRUBIN 2.3 mg/dL (0.2-1.0); TOTAL PROTEIN 6.5 g/dL (6.4-8.2)
--- NOTE | 2020-03-18 07:14 | NUR ---
At 0600, patient expressed want of removing restraints. Patient is alert and oriented. Thorough education provided about not to get out of bed without assistance, not to pull at edward or IV lines. Patient accepted this education. Restraints removed with no issues thus far.
[2020-03-18] MEDS ORDERED: POTASSIUM CHLORIDE 20 MEQ TABLET.ER. PO ONE (08:00)
--- NOTE | 2020-03-18 08:05 | PDOC ---
PROGRESS NOTES Date of Service: DATE: 03/18/20 TIME: 07:57 Chief Complaint Chief Complaint History of Present Illness Mr Mallory is a 34-year-old male w/ PMHx HTN, morbid obesity who presents to [facility] ED with 3-day history of nausea vomiting. Patient was drinking 10-12 drinks per day of alcohol up until 3 days ago when the symptoms began. Patient denies any diarrhea or abdominal pain. Patient feels anxious and tremulous. Patient denies any fevers chills cough or exposure to COVID-19. Symptoms are worse with drinking and not better with anything. He has a long history of alcohol abuse dating back to college where he did quit temporarily when he took a semester of college. He has been drinking 10-12 beers since then until the end of 2018 when he was able to quit for 3 months but with the loss of his job and COVID-19 has started drinking very heavily again. He notes he was also drinking because he has had some pain and numbness and tingling in the posterior aspect of his right thigh that does not go below the knee. EKG normal sinus rhythm with rate [address] changes normal intervals Labs significant for WBC 12.7, Hb 16.1, platelets 291 MCV 101, bilirubin 3, AST 193, ALT 119, magnesium 0.9, calcium 10.2, sodium 115, K3.1, BUN 21, CR 1.9. Patient will need ICU monitoring IV fluids and electrolyte replacement. 03/17/2020 Patient with improved sodium, agitated overnight, currenlty on Bipap in no acute distress, discussed with RN at bedside. 03/18/2020 Patient seems to be more stable compared to yesterday, electrolyte disturbance has been corrected, no neurological deficits History of Present Illness History of Present Illness Assessment/Plan A/P: Acute metabolic encephalopathy -multifactorial secondary to mild alcohol withdrawal and hyponatremia as well as hypomagnesemia. Improved compared to admission NED -likely vasomotor nephropathy. Will monitor renal function after hydration Transaminitis - consistent with alcoholic hepatitis. Will monitor. Leukocytosis - likely reactive secondary to vomiting. Will monitor Hyponatremia - Likely alcohol related (beer potomania). now corrected, will continue to monitor neurological status. Hypokalemia -likely related to concomitant diuretic use while drinking heavy alcohol. Will replace Hypomagnesemia - as above. Alcohol withdrawal - severe, will monitor on CIWA scale. Consult PAT team for alcohol use disorder FEN - Regular diet PPX - ambulatory, low risk, scds FULL CODE Dispo - ICU for life-threatening electrolyte abnormalities Vitals Vitals Vital Signs Date Time Temp Pulse Resp B/P (MAP) Pulse Ox O2 Delivery O2 Flow Rate FiO2 03/18/20 06:00 102 24 93/56 (68) 100 Nasal Cannula 2.0 03/18/20 04:00 97.7 97.7 Physical Exam General: No acute distress, Other (sedated) Heart: Regular rate, Normal S1, Normal S2 Lungs: Clear Abdomen: Normal bowel sounds, Soft, No tenderness, No hepatosplenomegaly, No masses Extremities: No clubbing, No cyanosis, No edema, Normal pulses, No tenderness/swelling Skin: No rashes, No breakdown, No significant lesion Labs LABS Laboratory Tests Test 03/17/20 09:15 03/17/20 13:45 03/17/20 20:16 03/18/20 04:00 Sodium Level 120 mmol/L (136-145) 122 mmol/L (136-145) 129 mmol/L (136-145) 135 mmol/L (136-145) Potassium Level 3.2 mmol/L (3.5-5.1) 3.2 mmol/L (3.5-5.1) 3.7 mmol/L (3.5-5.1) 3.4 mmol/L (3.5-5.1) Chloride Level 82 mmol/L (98-107) 85 mmol/L (98-107) 91 mmol/L (98-107) 95 mmol/L (98-107) Carbon Dioxide Level 34 mmol/L (21-32) 35 mmol/L (21-32) 30 mmol/L (21-32) 32 mmol/L (21-32) Anion Gap 4 (6-14) 2 (6-14) 8 (6-14) 8 (6-14) Blood Urea Nitrogen 28 mg/dL (8-26) 28 mg/dL (8-26) 25 mg/dL (8-26) 19 mg/dL (8-26) Creatinine 1.3 mg/dL (0.7-1.3) 1.3 mg/dL (0.7-1.3) 0.9 mg/dL (0.7-1.3) 0.9 mg/dL (0.7-1.3) Estimated GFR (Cockcroft-Gault) 63.2 63.2 96.6 96.6 Glucose Level 115 mg/dL (70-99) 106 mg/dL (70-99) 98 mg/dL (70-99) 85 mg/dL (70-99) Calcium Level 7.8 mg/dL (8.5-10.1) 7.9 mg/dL (8.5-10.1) 8.1 mg/dL (8.5-10.1) 8.7 mg/dL (8.5-10.1) Magnesium Level 2.2 mg/dL (1.8-2.4) 2.3 mg/dL (1.8-2.4) BUN/Creatinine Ratio 21 (6-20) Total Bilirubin 2.3 mg/dL (0.2-1.0) Aspartate Amino Transf (AST/SGOT) 215 U/L (15-37) Alanine Aminotransferase (ALT/SGPT) 126 U/L (16-63) Alkaline Phosphatase 77 U/L (46-116) Total Protein 6.5 g/dL (6.4-8.2) Albumin 3.2 g/dL (3.4-5.0) Albumin/Globulin Ratio 1.0 (1.0-1.7) Comment Review of Relevant I have reviewed the following items malathi (where applicable) has been applied. Labs Laboratory Tests Test 03/16/20 20:00 03/17/20 03:45 03/17/20 09:15 03/17/20 13:45 Sodium Level 115 mmol/L (136-145) 119 mmol/L (136-145) 120 mmol/L (136-145) 122 mmol/L (136-145) Potassium Level 3.4 mmol/L (3.5-5.1) 3.4 mmol/L (3.5-5.1) 3.2 mmol/L (3.5-5.1) 3.2 mmol/L (3.5-5.1) Chloride Level 77 mmol/L (98-107) 80 mmol/L (98-107) 82 mmol/L (98-107) 85 mmol/L (98-107) Carbon Dioxide Level 32 mmol/L (21-32) 36 mmol/L (21-32) 34 mmol/L (21-32) 35 mmol/L (21-32) Anion Gap 6 (6-14) 3 (6-14) 4 (6-14) 2 (6-14) Blood Urea Nitrogen 23 mg/dL (8-26) 24 mg/dL (8-26) 28 mg/dL (8-26) 28 mg/dL (8-26) Creatinine 1.2 mg/dL (0.7-1.3) 1.0 mg/dL (0.7-1.3) 1.3 mg/dL (0.7-1.3) 1.3 mg/dL (0.7-1.3) Estimated GFR (Cockcroft-Gault) 69.3 85.5 63.2 63.2 BUN/Creatinine Ratio 19 (6-20) 24 (6-20) Glucose Level 119 mg/dL (70-99) 130 mg/dL (70-99) 115 mg/dL (70-99) 106 mg/dL (70-99) Calcium Level 9.0 mg/dL (8.5-10.1) 8.1 mg/dL (8.5-10.1) 7.8 mg/dL (8.5-10.1) 7.9 mg/dL (8.5-10.1) Magnesium Level 2.4 mg/dL (1.8-2.4) 2.2 mg/dL (1.8-2.4) 2.2 mg/dL (1.8-2.4) Total Bilirubin 2.8 mg/dL (0.2-1.0) 2.4 mg/dL (0.2-1.0) Aspartate Amino Transf (AST/SGOT) 147 U/L (15-37) 143 U/L (15-37) Alanine Aminotransferase (ALT/SGPT) 94 U/L (16-63) 86 U/L (16-63) Alkaline Phosphatase 71 U/L (46-116) 68 U/L (46-116) Total Protein 7.6 g/dL (6.4-8.2) 6.7 g/dL (6.4-8.2) Albumin 3.8 g/dL (3.4-5.0) 3.4 g/dL (3.4-5.0) Albumin/Globulin Ratio 1.0 (1.0-1.7) 1.0 (1.0-1.7) White Blood Count 7.6 x10^3/uL (4.0-11.0) Red Blood Count 3.62 x10^6/uL (4.30-5.70) Hemoglobin 13.4 g/dL (13.0-17.5) Hematocrit 37.1 % (39.0-53.0) Mean Corpuscular Volume 103 fL (79-100) Mean Corpuscular Hemoglobin 37 pg (25-35) Mean Corpuscular Hemoglobin Concent 36 g/dL (31-37) Red Cell Distribution Width 13.5 % (11.5-14.5) Platelet Count 170 x10^3/uL (140-400) Neutrophils (%) (Auto) 72 % (31-73) Lymphocytes (%) (Auto) 14 % (24-48) Monocytes (%) (Auto) 13 % (0-9) Eosinophils (%) (Auto) 1 % (0-3) Basophils (%) (Auto) 0 % (0-3) Neutrophils # (Auto) 5.5 x10^3/uL (1.8-7.7) Lymphocytes # (Auto) 1.1 x10^3/uL (1.0-4.8) Monocytes # (Auto) 1.0 x10^3/uL (0.0-1.1) Eosinophils # (Auto) 0.1 x10^3/uL (0.0-0.7) Basophils # (Auto) 0.0 x10^3/uL (0.0-0.2) Prothrombin Time 14.3 SEC (11.7-14.0) Prothromb Time International Ratio 1.2 (0.8-1.1) Test 03/17/20 20:16 03/18/20 04:00 Sodium Level 129 mmol/L (136-145) 135 mmol/L (136-145) Potassium Level 3.7 mmol/L (3.5-5.1) 3.4 mmol/L (3.5-5.1) Chloride Level 91 mmol/L (98-107) 95 mmol/L (98-107) Carbon Dioxide Level 30 mmol/L (21-32) 32 mmol/L (21-32) Anion Gap 8 (6-14) 8 (6-14) Blood Urea Nitrogen 25 mg/dL (8-26) 19 mg/dL (8-26) Creatinine 0.9 mg/dL (0.7-1.3) 0.9 mg/dL (0.7-1.3) Estimated GFR (Cockcroft-Gault) 96.6 96.6 Glucose Level 98 mg/dL (70-99) 85 mg/dL (70-99) Calcium Level 8.1 mg/dL (8.5-10.1) 8.7 mg/dL (8.5-10.1) BUN/Creatinine Ratio 21 (6-20) Magnesium Level 2.3 mg/dL (1.8-2.4) Total Bilirubin 2.3 mg/dL (0.2-1.0) Aspartate Amino Transf (AST/SGOT) 215 U/L (15-37) Alanine Aminotransferase (ALT/SGPT) 126 U/L (16-63) Alkaline Phosphatase 77 U/L (46-116) Total Protein 6.5 g/dL (6.4-8.2) Albumin 3.2 g/dL (3.4-5.0) Albumin/Globulin Ratio 1.0 (1.0-1.7) Laboratory Tests Test 03/17/20 09:15 03/17/20 13:45 03/17/20 20:16 03/18/20 04:00 Sodium Level 120 mmol/L (136-145) 122 mmol/L (136-145) 129 mmol/L (136-145) 135 mmol/L (136-145) Potassium Level 3.2 mmol/L (3.5-5.1) 3.2 mmol/L (3.5-5.1) 3.7 mmol/L (3.5-5.1) 3.4 mmol/L (3.5-5.1) Chloride Level 82 mmol/L (98-107) 85 mmol/L (98-107) 91 mmol/L (98-107) 95 mmol/L (98-107) Carbon Dioxide Level 34 mmol/L (21-32) 35 mmol/L (21-32) 30 mmol/L (21-32) 32 mmol/L (21-32) Anion Gap 4 (6-14) 2 (6-14) 8 (6-14) 8 (6-14) Blood Urea Nitrogen 28 mg/dL (8-26) 28 mg/dL (8-26) 25 mg/dL (8-26) 19 mg/dL (8-26) Creatinine 1.3 mg/dL (0.7-1.3) 1.3 mg/dL (0.7-1.3) 0.9 mg/dL (0.7-1.3) 0.9 mg/dL (0.7-1.3) Estimated GFR (Cockcroft-Gault) 63.2 63.2 96.6 96.6 Glucose Level 115 mg/dL (70-99) 106 mg/dL (70-99) 98 mg/dL (70-99) 85 mg/dL (70-99) Calcium Level 7.8 mg/dL (8.5-10.1) 7.9 mg/dL (8.5-10.1) 8.1 mg/dL (8.5-10.1) 8.7 mg/dL (8.5-10.1) Magnesium Level 2.2 mg/dL (1.8-2.4) 2.3 mg/dL (1.8-2.4) BUN/Creatinine Ratio 21 (6-20) Total Bilirubin 2.3 mg/dL (0.2-1.0) Aspartate Amino Transf (AST/SGOT) 215 U/L (15-37) Alanine Aminotransferase (ALT/SGPT) 126 U/L (16-63) Alkaline Phosphatase 77 U/L (46-116) Total Protein 6.5 g/dL (6.4-8.2) Albumin 3.2 g/dL (3.4-5.0) Albumin/Globulin Ratio 1.0 (1.0-1.7) Medications Current Medications Potassium Chloride/Sodium Chloride 1,000 ml @ 100 mls/hr Q10H IV Last administered on 03/16/20at 15:15; Start 03/16/20 at 14:00; Stop 03/16/20 at 20:39; Status DC Ondansetron HCl (Zofran) 4 mg PRN Q6HRS PRN IVP NAUSEA/VOMITING; Start 03/16/20 at 13:15 Acetaminophen (Tylenol) 650 mg PRN Q6HRS PRN PO Headaches, Temp > 101.5F; Start 03/16/20 at 13:15 Multivitamins 10 ml/Thiamine HCl 100 mg/Folic Acid 1 mg/Sodium Chloride 1,011.2 ml @ 100 mls/ hr DAILY IV Last administered on 03/17/20at 07:38; Start 03/16/20 at 14:30; Stop 03/20/20 at 19:07 Lorazepam (Ativan) 2 mg PRN Q1HR PRN PO For CIWA 8-14; Start 03/16/20 at 13:15 Lorazepam (Ativan Inj) 1 mg PRN Q1HR PRN IV For CIWA 8-14 Last administered on 03/16/20at 19:25; Start 03/16/20 at 13:15 Haloperidol Lactate (Haldol Inj) 5 mg PRN Q4HRS PRN IVP Hallucinatns,Confusn,Delirium Last administered on 03/17/20at 02:35; Start 03/16/20 at 13:15 Magnesium Sulfate 50 ml @ 25 mls/hr 1X ONCE IV Last administered on 03/16/20at 14:16; Start 03/16/20 at 14:00; Stop 03/16/20 at 15:59; Status DC Lorazepam (Ativan) 4 mg PRN Q1HR PRN PO For CIWA 8-14; Start 03/16/20 at 20:15 Lorazepam (Ativan Inj) 2 mg PRN Q1HR PRN IV For CIWA 8-14; Start 03/16/20 at 20:15; Status UNV Lorazepam (Ativan Inj) 2 mg PRN Q4HRS PRN IVP HALLUCINATIONS Last administered on 03/16/20at 20:11; Start 03/16/20 at 20:15 Potassium Chloride 20 meq/ Sodium Chloride 510 ml @ 20 mls/hr 1X ONCE IV Last administered on 03/16/20at 21:15; Start 03/16/20 at 22:00; Stop 03/17/20 at 23:29; Status DC Chlordiazepoxide (Librium) 50 mg PRN Q1HR PRN PO For CIWA 8-14; Start 03/16/20 at 20:45; Stop 03/16/20 at 21:28; Status DC Chlordiazepoxide (Librium) 100 mg PRN Q1HR PRN PO For CIWA 15 or greater; Start 03/16/20 at 20:45; Stop 03/16/20 at 21:28; Status DC Lorazepam (Ativan) 8 mg PRN Q1HR PRN PO For CIWA 15 or greater; Start 03/16/20 at 21:30 Lorazepam (Ativan Inj) 4 mg PRN Q1HR PRN IV For CIWA 15 or greater Last administered on 03/18/20at 04:10; Start 03/16/20 at 21:30 Gabapentin (Neurontin) 300 mg TID PO ; Start 03/16/20 at 21:45 Ziprasidone (Geodon Im) 40 mg 1X ONCE IM Last administered on 03/16/20at 21:58; Start 03/16/20 at 21:45; Stop 03/16/20 at 21:46; Status DC Ziprasidone (Geodon Im) 40 mg PRN 1X ONCE IM ; Start 03/16/20 at 22:45; Stop 03/16/20 at 22:46; Status DC Dexmedetomidine HCl 400 mcg/ Sodium Chloride 100 ml @ 0 mls/hr CONT PRN IV agitation Last administered on 03/18/20at 03:20; Start 03/16/20 at 22:45 Atropine Sulfate (ATROPINE 0.5mg SYRINGE) 0.5 mg PRN Q5MIN PRN IV SEE COMMENTS; Start 03/16/20 at 22:45 Sodium Chloride 1,000 ml @ 999 mls/hr 1X ONCE IV Last administered on 0at 08:00; Start 03/17/20 at 08:00; Stop 03/17/20 at 09:00; Status DC Norepinephrine Bitartrate 8 mg/ Dextrose 258 ml @ 26.838 mls/ hr CONT PRN IV PER PROTOCOL; Start 03/17/20 at 08:00 Lorazepam (Ativan Inj) 2 mg PRN Q1HR PRN IV For CIWA 8-14; Start 03/17/20 at 16:00 Lorazepam (Ativan Inj) 4 mg PRN Q1HR PRN IV For CIWA 15 or greater; Start 03/17/20 at 16:00 Sodium Chloride 1,000 ml @ 999 mls/hr 1X ONCE IV Last administered on 03/17/20at 17:43; Start 03/17/20 at 17:45; Stop 03/17/20 at 18:45; Status DC Ringer's Solution 1,000 ml @ 125 mls/hr Q8H IV Last administered on 03/18/20at 03:20; Start 03/17/20 at 19:00 Vitals/I & O Vital Sign - Last 24 Hours 03/17/20 03/17/20 03/17/20 03/17/20 08:10 08:21 09:01 10:01 Pulse 65 62 Resp 17 20 B/P (MAP) 91/59 (70) 80/47 (58) Pulse Ox 100 100 100 O2 Delivery Bi-pap BiPAP/CPAP BiPAP/CPAP BiPAP/CPAP 03/17/20 03/17/20 03/17/20 03/17/20 11:01 12:01 12:15 12:45 Pulse 65 60 Resp 20 17 B/P (MAP) 101/60 (74) 88/57 (67) Pulse Ox 99 100 100 O2 Delivery BiPAP/CPAP BiPAP/CPAP BiPAP/CPAP Bi-pap 03/17/20 03/17/20 03/17/20 03/17/20 13:00 13:25 14:01 15:01 Pulse 61 60 71 Resp 19 17 18 B/P (MAP) 88/56 (67) 82/55 (64) 97/59 (72) Pulse Ox 100 100 100 100 O2 Delivery BiPAP/CPAP BiPAP/CPAP BiPAP/CPAP BiPAP/CPAP 03/17/20 03/17/20 03/17/20 03/17/20 15:56 16:03 17:01 18:30 Pulse 69 65 59 Resp 22 22 18 B/P (MAP) 97/63 (74) 91/62 (72) 87/54 (65) Pulse Ox 95 97 100 O2 Delivery Bi-pap BiPAP/CPAP BiPAP/CPAP BiPAP/CPAP 03/17/20 03/17/20 03/17/20 03/17/20 19:46 20:06 20:08 21:01 Temp 97.3 97.3 Pulse 70 68 66 Resp 18 20 20 B/P (MAP) 105/85 (92) 103/76 (85) 99/58 (72) Pulse Ox 100 96 97 O2 Delivery BiPAP/CPAP Bi-pap BiPAP/CPAP BiPAP/CPAP 03/17/20 03/17/20 03/18/20 03/18/20 22:01 23:32 00:00 00:16 Pulse 68 77 89 Resp 20 20 26 B/P (MAP) 110/72 (85) 120/90 (100) 111/83 (92) Pulse Ox 98 98 98 O2 Delivery BiPAP/CPAP BiPAP/CPAP Bi-pap BiPAP/CPAP 03/18/20 03/18/20 03/18/20 03/18/20 01:00 02:00 03:00 03:30 Temp 97.6 97.6 Pulse 75 72 84 Resp 20 18 20 B/P (MAP) 136/77 (96) 107/59 (75) 140/78 (98) Pulse Ox 98 98 97 O2 Delivery BiPAP/CPAP BiPAP/CPAP BiPAP/CPAP Bi-pap 03/18/20 03/18/20 03/18/20 04:00 05:00 06:00 Temp 97.7 97.7 Pulse 85 101 102 Resp 18 28 24 B/P (MAP) 111/62 (78) 108/63 (78) 93/56 (68) Pulse Ox 98 98 100 O2 Delivery BiPAP/CPAP BiPAP/CPAP Nasal Cannula O2 Flow Rate 2.0 Intake and Output 03/17/20 03/17/20 03/18/20 15:00 23:00 07:00 Intake Total 1000 ml 2011.2 ml 1701 ml Output Total 1090 ml 2875 ml 2200 ml Balance -90 ml -863.8 ml -499 ml Justicifation of Admission Dx: Justifications for Admission: Justification of Admission Dx: Yes Chronic Renal Failure: Electrolyte Abnormality BARRETT ROCHA MD Mar 18, 2020 08:05
[2020-03-18] MEDS: GABAPENTIN 300 MG CAPSULE. PO SCH ×3 (08:32→21:29)
[2020-03-18] MEDS: MULTIVIT INFUSN,ADULT 4,VIT K 10 ML, THIAMINE INJ 100 MG, FOLIC ACID INJ 1 MG in IV NOR... IV SCH (08:33)
--- NOTE | 2020-03-18 09:04 | PDOC ---
DATE OF SERVICE DATE: 03/18/20 TIME: 09:03 SUBJECTIVE ROS Alert, awake OBJECTIVE Vital Signs Vital Signs Date Time Temp Pulse Resp B/P (MAP) Pulse Ox O2 Delivery O2 Flow Rate FiO2 03/18/20 06:00 102 24 93/56 (68) 100 Nasal Cannula 2.0 03/18/20 04:00 97.7 97.7 I & 0 Intake and Output 03/18/20 07:00 Intake Total 4712.2 ml Output Total 6165 ml Balance -1452.8 ml IV Total 4712.2 ml Output Urine Total 6165 ml PHYSICAL EXAM Physical Exam General: NAD HEENT: OM moist , Neck supple Lungs: Clear to auscultation anteriorly Heart: S1S2, RRR, Extremities: No clubbing, No cyanosis, No edema, Skin: No rash Neuro: grossly normal , awake and alert Psych/Mental Status: stable - Lindsey dced DIAGNOSIS/ASSESSMENT Assessment & Plan NED - Vasomotor Renal function improved, uop initially reported low, Lindsey was kinked, Polyuric phase , Monitor Supportive care, Strict I/O, avoid Nephrotoxins HypoNatremia- severe , Improved 3% dced yesterday , advised to dc all fluids except Banana bag Currently on LR , recommend DC , monitor closely Dw RN Hypotension- required pressors , BP in 90's Acute metabolic encephalopathy -multifactorial secondary to mild alcohol withdrawal Resolved Transaminitis - consistent with alcoholic hepatitis Hypokalemia diuretic use and drinking heavy alcohol. Replace as indicated Hypomagnesemia - replace as indicated ETOH- Alcohol withdrawal Will sign off COMMENT/RELEVANT DATA Meds Current Medications Medications (Trade) Dose Ordered Sig/Zhen Start Time Stop Time Status Last Admin Dose Admin Acetaminophen (Tylenol) 650 mg PRN Q6HRS PRN 03/16/20 13:15 Atropine Sulfate (ATROPINE 0.5mg SYRINGE) 0.5 mg PRN Q5MIN PRN 03/16/20 22:45 Chlordiazepoxide (Librium) 100 mg PRN Q1HR PRN 03/16/20 20:45 03/16/20 21:28 DC Dexmedetomidine HCl 400 mcg/ Sodium Chloride 100 ml @ 0 mls/hr CONT PRN 03/16/20 22:45 03/18/20 03:20 6.8 MLS/HR Gabapentin (Neurontin) 300 mg TID 03/16/20 21:45 03/18/20 08:32 300 MG Haloperidol Lactate (Haldol Inj) 5 mg PRN Q4HRS PRN 03/16/20 13:15 03/17/20 02:35 5 MG Lorazepam (Ativan Inj) 4 mg PRN Q1HR PRN 03/17/20 16:00 Lorazepam (Ativan) 8 mg PRN Q1HR PRN 03/16/20 21:30 Magnesium Sulfate 50 ml @ 25 mls/hr 1X ONCE 03/16/20 14:00 03/16/20 15:59 DC 03/16/20 14:16 25 MLS/HR Multivitamins 10 ml/Thiamine HCl 100 mg/Folic Acid 1 mg/Sodium Chloride 1,011.2 ml @ 100 mls/ hr DAILY 03/16/20 14:30 03/20/20 19:07 03/18/20 08:33 100 MLS/HR Norepinephrine Bitartrate 8 mg/ Dextrose 258 ml @ 26.838 mls/ hr CONT PRN 03/17/20 08:00 Ondansetron HCl (Zofran) 4 mg PRN Q6HRS PRN 03/16/20 13:15 Potassium Chloride 20 meq/ Sodium Chloride 510 ml @ 20 mls/hr 1X ONCE 03/16/20 22:00 03/17/20 23:29 DC 03/16/20 21:15 20 MLS/HR Potassium Chloride/Sodium Chloride 1,000 ml @ 100 mls/hr Q10H 03/16/20 14:00 03/16/20 20:39 DC 03/16/20 15:15 100 MLS/HR Potassium Chloride (Klor-Con) 40 meq 1X ONCE 03/18/20 08:00 03/18/20 08:01 DC 03/18/20 08:33 40 MEQ Ringer's Solution 1,000 ml @ 125 mls/hr Q8H 03/17/20 19:00 03/18/20 03:20 125 MLS/HR Sodium Chloride 1,000 ml @ 999 mls/hr 1X ONCE 03/17/20 17:45 03/17/20 18:45 DC 03/17/20 17:43 999 MLS/HR Ziprasidone (Geodon Im) 40 mg PRN 1X ONCE 03/16/20 22:45 03/16/20 22:46 DC Lab Laboratory Tests Test 03/17/20 09:15 03/17/20 13:45 03/17/20 20:16 03/18/20 04:00 Sodium Level 120 mmol/L (136-145) 122 mmol/L (136-145) 129 mmol/L (136-145) 135 mmol/L (136-145) Potassium Level 3.2 mmol/L (3.5-5.1) 3.2 mmol/L (3.5-5.1) 3.7 mmol/L (3.5-5.1) 3.4 mmol/L (3.5-5.1) Chloride Level 82 mmol/L (98-107) 85 mmol/L (98-107) 91 mmol/L (98-107) 95 mmol/L (98-107) Carbon Dioxide Level 34 mmol/L (21-32) 35 mmol/L (21-32) 30 mmol/L (21-32) 32 mmol/L (21-32) Anion Gap 4 (6-14) 2 (6-14) 8 (6-14) 8 (6-14) Blood Urea Nitrogen 28 mg/dL (8-26) 28 mg/dL (8-26) 25 mg/dL (8-26) 19 mg/dL (8-26) Creatinine 1.3 mg/dL (0.7-1.3) 1.3 mg/dL (0.7-1.3) 0.9 mg/dL (0.7-1.3) 0.9 mg/dL (0.7-1.3) Estimated GFR (Cockcroft-Gault) 63.2 63.2 96.6 96.6 Glucose Level 115 mg/dL (70-99) 106 mg/dL (70-99) 98 mg/dL (70-99) 85 mg/dL (70-99) Calcium Level 7.8 mg/dL (8.5-10.1) 7.9 mg/dL (8.5-10.1) 8.1 mg/dL (8.5-10.1) 8.7 mg/dL (8.5-10.1) Magnesium Level 2.2 mg/dL (1.8-2.4) 2.3 mg/dL (1.8-2.4) BUN/Creatinine Ratio 21 (6-20) Total Bilirubin 2.3 mg/dL (0.2-1.0) Aspartate Amino Transf (AST/SGOT) 215 U/L (15-37) Alanine Aminotransferase (ALT/SGPT) 126 U/L (16-63) Alkaline Phosphatase 77 U/L (46-116) Total Protein 6.5 g/dL (6.4-8.2) Albumin 3.2 g/dL (3.4-5.0) Albumin/Globulin Ratio 1.0 (1.0-1.7) Results All relevant outside records, renal labs, imaging studies, telemetry/EKG's were reviewed. Justicifation of Admission Dx: Justifications for Admission: Justification of Admission Dx: Yes Chronic Renal Failure: Electrolyte Abnormality DARYL RODRIGES MD Mar 18, 2020 09:04
[2020-03-18] MEDS ORDERED: LORA-434 PO (10:31)
[2020-03-18] MEDS ORDERED: LISI1TAB23 PO (10:31)
[2020-03-18] MEDS ORDERED: PROM25TA10 PO (10:31)
--- NOTE | 2020-03-18 14:34 | NUR ---
SS following up with discharge planning. SS reviewed pt chart and discussed with pt RN. Pt is currently on room air. Joe from PAT team met with pt and pt reported that he was from [place], [place] and was visiting his girlfriend in [facility]. Pt reported that he does not feel he needs help for his ETOH and wants to follow up with his PCP in [place]. Discharge plan is to home when medically ready. SS will continue to follow for discharge planning.
--- NOTE | 2020-03-18 18:10 | NUR ---
Pt has had uneventful day, cooperative and family at bedside all day. Precedex off 0800 Pt asked for Ativan several times, CIWA score 2-4 and Ativan given thru day with good results. Pat team here earlier. Pt up in chair twice for meals. IV patent for Banana bag. César dc'd earlier and pt voided w/o diff. Still some Tachycardia when up to chair. Still unsteady on feet when up to BR. 1 person assist
[2020-03-19 04:06] VITALS: BP 140/82
[2020-03-19 05:33] LABS: BASO # 0.1 x10^3/uL (0.0-0.2); BASO % 1 % (0-3); EOS # 0.1 x10^3/uL (0.0-0.7); EOS % 1 % (0-3); HEMATOCRIT 36.7 % (39.0-53.0); LYMPH # 1.6 x10^3/uL (1.0-4.8); LYMPH % 22 % (24-48); MEAN CORPUSCULAR HEMOGLOBIN 37 pg (25-35); MEAN CORPUSCULAR HGB CONC 35 g/dL (31-37); MEAN CORPUSCULAR VOLUME 103 fL (79-100); MONO # 1.4 x10^3/uL (0.0-1.1); MONO % 19 % (0-9); NEUT # 4.1 x10^3/uL (1.8-7.7); NEUT % 57 % (31-73); PLATELET COUNT 249 x10^3/uL (140-400); RED BLOOD COUNT 3.55 x10^6/uL (4.30-5.70); RED CELL DISTRIBUTION WIDTH 13.4 % (11.5-14.5); WHITE BLOOD COUNT 7.2 x10^3/uL (4.0-11.0)
[2020-03-19 06:03] LABS: ALBUMIN 3.1 g/dL (3.4-5.0); ALBUMIN/GLOBULIN RATIO 0.9 (1.0-1.7); CALCIUM 8.6 mg/dL (8.5-10.1); CREATININE 0.8 mg/dL (0.7-1.3); GFR 110.7; POTASSIUM 3.4 mmol/L (3.5-5.1); TOTAL BILIRUBIN 1.3 mg/dL (0.2-1.0); TOTAL PROTEIN 6.7 g/dL (6.4-8.2)
[2020-03-19 08:00] VITALS: BP 141/95
--- NOTE | 2020-03-19 08:54 | PDOC ---
PROGRESS NOTES Date of Service: DATE: 03/19/20 TIME: 08:54 Chief Complaint Chief Complaint History of Present Illness Mr Mallory is a 34-year-old male w/ PMHx HTN, morbid obesity who presents to [facility] with 3-day history of nausea vomiting. Patient was drinking 10-12 drinks per day of alcohol up until 3 days ago when the symptoms began. Patient denies any diarrhea or abdominal pain. Patient feels anxious and tremulous. Patient denies any fevers chills cough or exposure to COVID-19. Symptoms are worse with drinking and not better with anything. He has a long history of alcohol abuse dating back to college where he did quit temporarily when he took a semester of college. He has been drinking 10-12 beers since then until the end of 2018 when he was able to quit for 3 months but with the loss of his job and COVID-19 has started drinking very heavily again. He notes he was also drinking because he has had some pain and numbness and tingling in the posterior aspect of his right thigh that does not go below the knee. EKG normal sinus rhythm with rate [address] changes normal intervals Labs significant for WBC 12.7, Hb 16.1, platelets 291 MCV 101, bilirubin 3, AST 193, ALT 119, magnesium 0.9, calcium 10.2, sodium 115, K3.1, BUN 21, CR 1.9. Patient will need ICU monitoring IV fluids and electrolyte replacement. 03/17/2020 Patient with improved sodium, agitated overnight, currenlty on Bipap in no acute distress, discussed with RN at bedside. 03/18/2020 Patient seems to be more stable compared to yesterday, electrolyte disturbance has been corrected, no neurological deficits History of Present Illness History of Present Illness Assessment/Plan A/P: Acute metabolic encephalopathy -multifactorial secondary to mild alcohol withdrawal and hyponatremia as well as hypomagnesemia. Improved compared to admission NED -likely vasomotor nephropathy. Will monitor renal function after hydration Transaminitis - consistent with alcoholic hepatitis. Will monitor. Leukocytosis - likely reactive secondary to vomiting. Will monitor Hyponatremia - Likely alcohol related (beer potomania). now corrected, will continue to monitor neurological status. Hypokalemia -likely related to concomitant diuretic use while drinking heavy alcohol. Will replace Hypomagnesemia - as above. Alcohol withdrawal - severe, will monitor on CIWA scale. Consult PAT team for alcohol use disorder FEN - Regular diet PPX - ambulatory, low risk, scds FULL CODE Dispo - ICU for life-threatening electrolyte abnormalities Vitals Vitals Vital Signs Date Time Temp Pulse Resp B/P (MAP) Pulse Ox O2 Delivery O2 Flow Rate FiO2 03/19/20 04:06 98.3 94 22 140/82 (101) 98 Room Air 98.3 03/18/20 07:00 2.0 Physical Exam General: No acute distress, Other (sedated) Heart: Regular rate, Normal S1, Normal S2 Lungs: Clear Abdomen: Normal bowel sounds, Soft, No tenderness, No hepatosplenomegaly, No masses Extremities: No clubbing, No cyanosis, No edema, Normal pulses, No tenderness/swelling Skin: No rashes, No breakdown, No significant lesion Labs LABS Laboratory Tests Test 03/19/20 05:00 White Blood Count 7.2 x10^3/uL (4.0-11.0) Red Blood Count 3.55 x10^6/uL (4.30-5.70) Hemoglobin 13.0 g/dL (13.0-17.5) Hematocrit 36.7 % (39.0-53.0) Mean Corpuscular Volume 103 fL (79-100) Mean Corpuscular Hemoglobin 37 pg (25-35) Mean Corpuscular Hemoglobin Concent 35 g/dL (31-37) Red Cell Distribution Width 13.4 % (11.5-14.5) Platelet Count 249 x10^3/uL (140-400) Neutrophils (%) (Auto) 57 % (31-73) Lymphocytes (%) (Auto) 22 % (24-48) Monocytes (%) (Auto) 19 % (0-9) Eosinophils (%) (Auto) 1 % (0-3) Basophils (%) (Auto) 1 % (0-3) Neutrophils # (Auto) 4.1 x10^3/uL (1.8-7.7) Lymphocytes # (Auto) 1.6 x10^3/uL (1.0-4.8) Monocytes # (Auto) 1.4 x10^3/uL (0.0-1.1) Eosinophils # (Auto) 0.1 x10^3/uL (0.0-0.7) Basophils # (Auto) 0.1 x10^3/uL (0.0-0.2) Sodium Level 134 mmol/L (136-145) Potassium Level 3.4 mmol/L (3.5-5.1) Chloride Level 96 mmol/L (98-107) Carbon Dioxide Level 31 mmol/L (21-32) Anion Gap 7 (6-14) Blood Urea Nitrogen 10 mg/dL (8-26) Creatinine 0.8 mg/dL (0.7-1.3) Estimated GFR (Cockcroft-Gault) 110.7 BUN/Creatinine Ratio 13 (6-20) Glucose Level 89 mg/dL (70-99) Calcium Level 8.6 mg/dL (8.5-10.1) Total Bilirubin 1.3 mg/dL (0.2-1.0) Aspartate Amino Transf (AST/SGOT) 136 U/L (15-37) Alanine Aminotransferase (ALT/SGPT) 97 U/L (16-63) Alkaline Phosphatase 83 U/L (46-116) Total Protein 6.7 g/dL (6.4-8.2) Albumin 3.1 g/dL (3.4-5.0) Albumin/Globulin Ratio 0.9 (1.0-1.7) Comment Review of Relevant I have reviewed the following items malathi (where applicable) has been applied. Labs Laboratory Tests Test 03/17/20 09:15 03/17/20 13:45 03/17/20 20:16 03/18/20 04:00 Sodium Level 120 mmol/L (136-145) 122 mmol/L (136-145) 129 mmol/L (136-145) 135 mmol/L (136-145) Potassium Level 3.2 mmol/L (3.5-5.1) 3.2 mmol/L (3.5-5.1) 3.7 mmol/L (3.5-5.1) 3.4 mmol/L (3.5-5.1) Chloride Level 82 mmol/L (98-107) 85 mmol/L (98-107) 91 mmol/L (98-107) 95 mmol/L (98-107) Carbon Dioxide Level 34 mmol/L (21-32) 35 mmol/L (21-32) 30 mmol/L (21-32) 32 mmol/L (21-32) Anion Gap 4 (6-14) 2 (6-14) 8 (6-14) 8 (6-14) Blood Urea Nitrogen 28 mg/dL (8-26) 28 mg/dL (8-26) 25 mg/dL (8-26) 19 mg/dL (8-26) Creatinine 1.3 mg/dL (0.7-1.3) 1.3 mg/dL (0.7-1.3) 0.9 mg/dL (0.7-1.3) 0.9 mg/dL (0.7-1.3) Estimated GFR (Cockcroft-Gault) 63.2 63.2 96.6 96.6 Glucose Level 115 mg/dL (70-99) 106 mg/dL (70-99) 98 mg/dL (70-99) 85 mg/dL (70-99) Calcium Level 7.8 mg/dL (8.5-10.1) 7.9 mg/dL (8.5-10.1) 8.1 mg/dL (8.5-10.1) 8.7 mg/dL (8.5-10.1) Magnesium Level 2.2 mg/dL (1.8-2.4) 2.3 mg/dL (1.8-2.4) BUN/Creatinine Ratio 21 (6-20) Total Bilirubin 2.3 mg/dL (0.2-1.0) Aspartate Amino Transf (AST/SGOT) 215 U/L (15-37) Alanine Aminotransferase (ALT/SGPT) 126 U/L (16-63) Alkaline Phosphatase 77 U/L (46-116) Total Protein 6.5 g/dL (6.4-8.2) Albumin 3.2 g/dL (3.4-5.0) Albumin/Globulin Ratio 1.0 (1.0-1.7) Test 03/19/20 05:00 White Blood Count 7.2 x10^3/uL (4.0-11.0) Red Blood Count 3.55 x10^6/uL (4.30-5.70) Hemoglobin 13.0 g/dL (13.0-17.5) Hematocrit 36.7 % (39.0-53.0) Mean Corpuscular Volume 103 fL (79-100) Mean Corpuscular Hemoglobin 37 pg (25-35) Mean Corpuscular Hemoglobin Concent 35 g/dL (31-37) Red Cell Distribution Width 13.4 % (11.5-14.5) Platelet Count 249 x10^3/uL (140-400) Neutrophils (%) (Auto) 57 % (31-73) Lymphocytes (%) (Auto) 22 % (24-48) Monocytes (%) (Auto) 19 % (0-9) Eosinophils (%) (Auto) 1 % (0-3) Basophils (%) (Auto) 1 % (0-3) Neutrophils # (Auto) 4.1 x10^3/uL (1.8-7.7) Lymphocytes # (Auto) 1.6 x10^3/uL (1.0-4.8) Monocytes # (Auto) 1.4 x10^3/uL (0.0-1.1) Eosinophils # (Auto) 0.1 x10^3/uL (0.0-0.7) Basophils # (Auto) 0.1 x10^3/uL (0.0-0.2) Sodium Level 134 mmol/L (136-145) Potassium Level 3.4 mmol/L (3.5-5.1) Chloride Level 96 mmol/L (98-107) Carbon Dioxide Level 31 mmol/L (21-32) Anion Gap 7 (6-14) Blood Urea Nitrogen 10 mg/dL (8-26) Creatinine 0.8 mg/dL (0.7-1.3) Estimated GFR (Cockcroft-Gault) 110.7 BUN/Creatinine Ratio 13 (6-20) Glucose Level 89 mg/dL (70-99) Calcium Level 8.6 mg/dL (8.5-10.1) Total Bilirubin 1.3 mg/dL (0.2-1.0) Aspartate Amino Transf (AST/SGOT) 136 U/L (15-37) Alanine Aminotransferase (ALT/SGPT) 97 U/L (16-63) Alkaline Phosphatase 83 U/L (46-116) Total Protein 6.7 g/dL (6.4-8.2) Albumin 3.1 g/dL (3.4-5.0) Albumin/Globulin Ratio 0.9 (1.0-1.7) Laboratory Tests Test 03/19/20 05:00 White Blood Count 7.2 x10^3/uL (4.0-11.0) Red Blood Count 3.55 x10^6/uL (4.30-5.70) Hemoglobin 13.0 g/dL (13.0-17.5) Hematocrit 36.7 % (39.0-53.0) Mean Corpuscular Volume 103 fL (79-100) Mean Corpuscular Hemoglobin 37 pg (25-35) Mean Corpuscular Hemoglobin Concent 35 g/dL (31-37) Red Cell Distribution Width 13.4 % (11.5-14.5) Platelet Count 249 x10^3/uL (140-400) Neutrophils (%) (Auto) 57 % (31-73) Lymphocytes (%) (Auto) 22 % (24-48) Monocytes (%) (Auto) 19 % (0-9) Eosinophils (%) (Auto) 1 % (0-3) Basophils (%) (Auto) 1 % (0-3) Neutrophils # (Auto) 4.1 x10^3/uL (1.8-7.7) Lymphocytes # (Auto) 1.6 x10^3/uL (1.0-4.8) Monocytes # (Auto) 1.4 x10^3/uL (0.0-1.1) Eosinophils # (Auto) 0.1 x10^3/uL (0.0-0.7) Basophils # (Auto) 0.1 x10^3/uL (0.0-0.2) Sodium Level 134 mmol/L (136-145) Potassium Level 3.4 mmol/L (3.5-5.1) Chloride Level 96 mmol/L (98-107) Carbon Dioxide Level 31 mmol/L (21-32) Anion Gap 7 (6-14) Blood Urea Nitrogen 10 mg/dL (8-26) Creatinine 0.8 mg/dL (0.7-1.3) Estimated GFR (Cockcroft-Gault) 110.7 BUN/Creatinine Ratio 13 (6-20) Glucose Level 89 mg/dL (70-99) Calcium Level 8.6 mg/dL (8.5-10.1) Total Bilirubin 1.3 mg/dL (0.2-1.0) Aspartate Amino Transf (AST/SGOT) 136 U/L (15-37) Alanine Aminotransferase (ALT/SGPT) 97 U/L (16-63) Alkaline Phosphatase 83 U/L (46-116) Total Protein 6.7 g/dL (6.4-8.2) Albumin 3.1 g/dL (3.4-5.0) Albumin/Globulin Ratio 0.9 (1.0-1.7) Medications Current Medications Potassium Chloride/Sodium Chloride 1,000 ml @ 100 mls/hr Q10H IV Last administered on 03/16/20at 15:15; Start 03/16/20 at 14:00; Stop 03/16/20 at 20:39; Status DC Ondansetron HCl (Zofran) 4 mg PRN Q6HRS PRN IVP NAUSEA/VOMITING; Start 03/16/20 at 13:15 Acetaminophen (Tylenol) 650 mg PRN Q6HRS PRN PO Headaches, Temp > 101.5F; Start 03/16/20 at 13:15 Multivitamins 10 ml/Thiamine HCl 100 mg/Folic Acid 1 mg/Sodium Chloride 1,011.2 ml @ 100 mls/ hr DAILY IV Last administered on 03/18/20at 08:33; Start 03/16/20 at 14:30; Stop 03/20/20 at 19:07 Lorazepam (Ativan) 2 mg PRN Q1HR PRN PO For CIWA 8-14; Start 03/16/20 at 13:15; Stop 03/18/20 at 08:34; Status DC Lorazepam (Ativan Inj) 1 mg PRN Q1HR PRN IV For CIWA 8-14 Last administered on 03/16/20at 19:25; Start 03/16/20 at 13:15; Stop 03/18/20 at 08:31; Status DC Haloperidol Lactate (Haldol Inj) 5 mg PRN Q4HRS PRN IVP Richey ucinatns,Confusn,Delirium Last administered on 03/17/20at 02:35; Start 03/16/20 at 13:15 Magnesium Sulfate 50 ml @ 25 mls/hr 1X ONCE IV Last administered on 03/16/20at 14:16; Start 03/16/20 at 14:00; Stop 03/16/20 at 15:59; Status DC Lorazepam (Ativan) 4 mg PRN Q1HR PRN PO For CIWA 8-14; Start 03/16/20 at 20:15 Lorazepam (Ativan Inj) 2 mg PRN Q1HR PRN IV For CIWA 8-14; Start 03/16/20 at 20:15; Status UNV Lorazepam (Ativan Inj) 2 mg PRN Q4HRS PRN IVP HALLUCINATIONS- 1ST CHOICE Last administered on 03/16/20at 20:11; Start 03/16/20 at 20:15 Potassium Chloride 20 meq/ Sodium Chloride 510 ml @ 20 mls/hr 1X ONCE IV Last administered on 03/16/20at 21:15; Start 03/16/20 at 22:00; Stop 03/17/20 at 23:29; Status DC Chlordiazepoxide (Librium) 50 mg PRN Q1HR PRN PO For CIWA 8-14; Start 03/16/20 at 20:45; Stop 03/16/20 at 21:28; Status DC Chlordiazepoxide (Librium) 100 mg PRN Q1HR PRN PO For CIWA 15 or greater; Start 03/16/20 at 20:45; Stop 03/16/20 at 21:28; Status DC Lorazepam (Ativan) 8 mg PRN Q1HR PRN PO For CIWA 15 or greater; Start 03/16/20 at 21:30 Lorazepam (Ativan Inj) 4 mg PRN Q1HR PRN IV For CIWA 15 or greater Last administered on 03/18/20at 04:10; Start 03/16/20 at 21:30; Stop 03/18/20 at 08:31; Status DC Gabapentin (Neurontin) 300 mg TID PO Last administered on 03/18/20at 21:29; Start 03/16/20 at 21:45 Ziprasidone (Geodon Im) 40 mg 1X ONCE IM Last administered on 03/16/20at 21:58; Start 03/16/20 at 21:45; Stop 03/16/20 at 21:46; Status DC Ziprasidone (Geodon Im) 40 mg PRN 1X ONCE IM ; Start 03/16/20 at 22:45; Stop 03/16/20 at 22:46; Status DC Dexmedetomidine HCl 400 mcg/ Sodium Chloride 100 ml @ 0 mls/hr CONT PRN IV ag itation Last administered on 03/18/20at 03:20; Start 03/16/20 at 22:45; Stop 03/18/20 at 12:08; Status DC Atropine Sulfate (ATROPINE 0.5mg SYRINGE) 0.5 mg PRN Q5MIN PRN IV SEE COMMENTS; Start 03/16/20 at 22:45; Stop 03/18/20 at 12:09; Status DC Sodium Chloride 1,000 ml @ 999 mls/hr 1X ONCE IV Last administered on 03/17/20at 08:00; Start 03/17/20 at 08:00; Stop 03/17/20 at 09:00; Status DC Norepinephrine Bitartrate 8 mg/ Dextrose 258 ml @ 26.838 mls/ hr CONT PRN IV PER PROTOCOL; Start 03/17/20 at 08:00 Lorazepam (Ativan Inj) 2 mg PRN Q1HR PRN IV For CIWA 8-14 Last administered on 03/18/20at 11:30; Start 03/17/20 at 16:00 Lorazepam (Ativan Inj) 4 mg PRN Q1HR PRN IV For CIWA 15 or greater Last administered on 03/18/20at 21:30; Start 03/17/20 at 16:00 Sodium Chloride 1,000 ml @ 999 mls/hr 1X ONCE IV Last administered on 03/17/20at 17:43; Start 03/17/20 at 17:45; Stop 03/17/20 at 18:45; Status DC Ringer's Solution 1,000 ml @ 125 mls/hr Q8H IV Last administered on 03/18/20at 03:20; Start 03/17/20 at 19:00; Stop 03/18/20 at 10:10; Status DC Potassium Chloride (Klor-Con) 40 meq 1X ONCE PO Last administered on 03/18/20at 08:33; Start 03/18/20 at 08:00; Stop 03/18/20 at 08:01; Status DC Active Scripts Active Reported Lisinopril-Hctz 10-12.5 Mg Tab (Lisinopril/Hydrochlorothiazide) 1 Each Tablet 1 Tab PO DAILY Promethazine Hcl 25 Mg Tablet 1 Tab PO PRN Q6HRS PRN Ativan (Lorazepam) 1 Mg Tablet 1 Mg PO BID PRN Vitals/I & O Vital Sign - Last 24 Hours 03/18/20 03/18/20 03/18/20 03/18/20 09:00 10:00 11:00 12:00 Temp 98.8 98.8 Pulse 114 100 106 104 Resp B/P (MAP) 97/62 (74) 90/55 (67) 95/55 (68) 90/48 (62) Pulse Ox 98 98 98 98 O2 Delivery Room Air Room Air Room Air Room Air 03/18/20 03/18/20 03/18/20 03/18/20 16:00 19:45 19:45 23:45 Temp 98.6 98.4 98.5 98.6 98.4 98.5 Pulse 108 104 109 Resp B/P (MAP) 107/80 (89) 114/65 (81) 128/72 (90) Pulse Ox 98 97 96 O2 Delivery Room Air Room Air Room Air Room Air 03/19/20 04:06 Temp 98.3 98.3 Pulse 94 Resp 22 B/P (MAP) 140/82 (101) Pulse Ox 98 O2 Delivery Room Air Intake and Output 03/18/20 03/18/20 03/19/20 15:00 23:00 07:00 Intake Total 1040 ml 1729 ml 1200 ml Output Total 500 ml 1100 ml 1850 ml Balance 540 ml 629 ml -650 ml Justicifation of Admission Dx: Justifications for Admission: Justification of Admission Dx: Yes Chronic Renal Failure: Electrolyte Abnormality LUIS ARMANDO BOB MD Mar 19, 2020 08:54
[2020-03-19] MEDS: MULTIVIT INFUSN,ADULT 4,VIT K 10 ML, THIAMINE INJ 100 MG, FOLIC ACID INJ 1 MG in IV NOR... IV SCH (09:00)
[2020-03-19] MEDS ORDERED: FOLI0.8C PO (10:58)
[2020-03-19] MEDS ORDERED: BUSP5TAB PO (10:58)
[2020-03-19] MEDS ORDERED: THIA100T43 PO (10:58)
[2020-03-19] MEDS: GABAPENTIN 300 MG CAPSULE. PO SCH (11:05)
--- NOTE | 2020-03-19 11:30 | PDOC3 ---
Discharge Summary Visit Information Date of Admission: Mar 16, 2020 Date of Discharge: Mar 19, 2020 Admitting Diagnosis Comment: Acute metabolic encephalopathy -multifactorial secondary to mild alcohol withdrawal and hyponatremia as well as hypomagnesemia. NED -likely vasomotor nephropathy. Will monitor renal function after hydration Transaminitis - consistent with alcoholic hepatitis. Will monitor. Leukocytosis - likely reactive secondary to vomiting. Will monitor Hyponatremia - Likely alcohol related (beer potomania). Will obtain CT head giv en confusion as well. NSS ordered. Will consult nephrology Hypokalemia -likely related to concomitant diuretic use while drinking heavy alcohol. Will replace Hypomagnesemia - as above. Alcohol withdrawal Final Diagnosis Acute metabolic encephalopathy -multifactorial secondary to mild alcohol withdrawal and hyponatremia as well as hypomagnesemia. Resolved NED -likely vasomotor nephropathy. Resolved Transaminitis - consistent with alcoholic hepatitis. Resolved Leukocytosis - likely reactive secondary to vomiting. Resolved Hyponatremia - Likely alcohol related (beer potomania). now corrected, Hypokalemia -likely related to concomitant diuretic use while drinking heavy alcohol. Replaced Hypomagnesemia -replaced Alcohol withdrawal now stable Brief Hospital Course Allergies Allergies Coded Allergies Type Severity Reaction Last Updated Verified cefaclor Allergy Intermediate Unknown 03/16/20 Yes Vital Signs Vital Signs Date Time Temp Pulse Resp B/P (MAP) Pulse Ox O2 Delivery O2 Flow Rate FiO2 03/19/20 08:00 99.0 106 18 141/95 (110) 99 Room Air 99.0 03/18/20 07:00 2.0 Lab Results Laboratory Tests Test 03/17/20 13:45 03/17/20 20:16 03/18/20 04:00 03/19/20 05:00 Sodium Level 122 mmol/L (136-145) 129 mmol/L (136-145) 135 mmol/L (136-145) 134 mmol/L (136-145) Potassium Level 3.2 mmol/L (3.5-5.1) 3.7 mmol/L (3.5-5.1) 3.4 mmol/L (3.5-5.1) 3.4 mmol/L (3.5-5.1) Chloride Level 85 mmol/L (98-107) 91 mmol/L (98-107) 95 mmol/L (98-107) 96 mmol/L (98-107) Carbon Dioxide Level 35 mmol/L (21-32) 30 mmol/L (21-32) 32 mmol/L (21-32) 31 mmol/L (21-32) Anion Gap 2 (6-14) 8 (6-14) 8 (6-14) 7 (6-14) Blood Urea Nitrogen 28 mg/dL (8-26) 25 mg/dL (8-26) 19 mg/dL (8-26) 10 mg/dL (8-26) Creatinine 1.3 mg/dL (0.7-1.3) 0.9 mg/dL (0.7-1.3) 0.9 mg/dL (0.7-1.3) 0.8 mg/dL (0.7-1.3) Estimated GFR (Cockcroft-Gault) 63.2 96.6 96.6 110.7 Glucose Level 106 mg/dL (70-99) 98 mg/dL (70-99) 85 mg/dL (70-99) 89 mg/dL (70-99) Calcium Level 7.9 mg/dL (8.5-10.1) 8.1 mg/dL (8.5-10.1) 8.7 mg/dL (8.5-10.1) 8.6 mg/dL (8.5-10.1) BUN/Creatinine Ratio 21 (6-20) 13 (6-20) Magnesium Level 2.3 mg/dL (1.8-2.4) Total Bilirubin 2.3 mg/dL (0.2-1.0) 1.3 mg/dL (0.2-1.0) Aspartate Amino Transf (AST/SGOT) 215 U/L (15-37) 136 U/L (15-37) Alanine Aminotransferase (ALT/SGPT) 126 U/L (16-63) 97 U/L (16-63) Alkaline Phosphatase 77 U/L (46-116) 83 U/L (46-116) Total Protein 6.5 g/dL (6.4-8.2) 6.7 g/dL (6.4-8.2) Albumin 3.2 g/dL (3.4-5.0) 3.1 g/dL (3.4-5.0) Albumin/Globulin Ratio 1.0 (1.0-1.7) 0.9 (1.0-1.7) White Blood Count 7.2 x10^3/uL (4.0-11.0) Red Blood Count 3.55 x10^6/uL (4.30-5.70) Hemoglobin 13.0 g/dL (13.0-17.5) Hematocrit 36.7 % (39.0-53.0) Mean Corpuscular Volume 103 fL (79-100) Mean Corpuscular Hemoglobin 37 pg (25-35) Mean Corpuscular Hemoglobin Concent 35 g/dL (31-37) Red Cell Distribution Width 13.4 % (11.5-14.5) Platelet Count 249 x10^3/uL (140-400) Neutrophils (%) (Auto) 57 % (31-73) Lymphocytes (%) (Auto) 22 % (24-48) Monocytes (%) (Auto) 19 % (0-9) Eosinophils (%) (Auto) 1 % (0-3) Basophils (%) (Auto) 1 % (0-3) Neutrophils # (Auto) 4.1 x10^3/uL (1.8-7.7) Lymphocytes # (Auto) 1.6 x10^3/uL (1.0-4.8) Monocytes # (Auto) 1.4 x10^3/uL (0.0-1.1) Eosinophils # (Auto) 0.1 x10^3/uL (0.0-0.7) Basophils # (Auto) 0.1 x10^3/uL (0.0-0.2) Laboratory Tests Test 03/19/20 05:00 White Blood Count 7.2 x10^3/uL (4.0-11.0) Red Blood Count 3.55 x10^6/uL (4.30-5.70) Hemoglobin 13.0 g/dL (13.0-17.5) Hematocrit 36.7 % (39.0-53.0) Mean Corpuscular Volume 103 fL (79-100) Mean Corpuscular Hemoglobin 37 pg (25-35) Mean Corpuscular Hemoglobin Concent 35 g/dL (31-37) Red Cell Distribution Width 13.4 % (11.5-14.5) Platelet Count 249 x10^3/uL (140-400) Neutrophils (%) (Auto) 57 % (31-73) Lymphocytes (%) (Auto) 22 % (24-48) Monocytes (%) (Auto) 19 % (0-9) Eosinophils (%) (Auto) 1 % (0-3) Basophils (%) (Auto) 1 % (0-3) Neutrophils # (Auto) 4.1 x10^3/uL (1.8-7.7) Lymphocytes # (Auto) 1.6 x10^3/uL (1.0-4.8) Monocytes # (Auto) 1.4 x10^3/uL (0.0-1.1) Eosinophils # (Auto) 0.1 x10^3/uL (0.0-0.7) Basophils # (Auto) 0.1 x10^3/uL (0.0-0.2) Sodium Level 134 mmol/L (136-145) Potassium Level 3.4 mmol/L (3.5-5.1) Chloride Level 96 mmol/L (98-107) Carbon Dioxide Level 31 mmol/L (21-32) Anion Gap 7 (6-14) Blood Urea Nitrogen 10 mg/dL (8-26) Creatinine 0.8 mg/dL (0.7-1.3) Estimated GFR (Cockcroft-Gault) 110.7 BUN/Creatinine Ratio 13 (6-20) Glucose Level 89 mg/dL (70-99) Calcium Level 8.6 mg/dL (8.5-10.1) Total Bilirubin 1.3 mg/dL (0.2-1.0) Aspartate Amino Transf (AST/SGOT) 136 U/L (15-37) Alanine Aminotransferase (ALT/SGPT) 97 U/L (16-63) Alkaline Phosphatase 83 U/L (46-116) Total Protein 6.7 g/dL (6.4-8.2) Albumin 3.1 g/dL (3.4-5.0) Albumin/Globulin Ratio 0.9 (1.0-1.7) Brief Hospital Course History of Present Illness Mr Mallory is a 34-year-old male w/ PMHx HTN, morbid obesity who presents to [place] ED with 3-day history of nausea vomiting. Patient was drinking 10-12 drinks per day of alcohol up until 3 days ago when the symptoms began. Patient denies any diarrhea or abdominal pain. Patient feels anxious and tremulous. Patient denies any fevers chills cough or exposure to COVID-19. Symptoms are worse with drinking and not better with anything. He has a long history of alcohol abuse dating back to college where he did quit temporarily when he took a semester of college. He has been drinking 10-12 beers since then until the end of 2018 when he was able to quit for 3 months but with the loss of his job and COVID-19 has started drinking very heavily again. He notes he was also drinking because he has had some pain and numbness and tingling in the posterior aspect of his right thigh that does not go below the knee. EKG normal sinus rhythm with rate [address] changes normal intervals Labs significant for WBC 12.7, Hb 16.1, platelets 291 MCV 101, bilirubin 3, AST 193, ALT 119, magnesium 0.9, calcium 10.2, sodium 115, K3.1, BUN 21, CR 1.9. Patient will need ICU monitoring IV fluids and electrolyte replacement. 03/17/2020 Patient with improved sodium, agitated overnight, currenlty on Bipap in no acute distress, discussed with RN at bedside. 03/18/2020 Patient seems to be more stable compared to yesterday, electrolyte disturbance has been corrected, no neurological deficits 03/19/2020 Patient was successfully moved to the medical floor where he did not present any acute events reported overnight. The patient is able to ambulate he is not exhibiting withdrawal symptoms anymore mother is at bedside, we had discussed the need for support system and enrolling in a program in order to ensure sobriety. I have encouraged to seek counseling of support groups immediately after his discharge from the hospital. He seems to acknowledge understanding mother is at bedside. Have encouraged him also to follow-up with his primary care physician I have provided him a prescription for BuSpar to have a bridge until he gets seen by his primary care physician started on medications appropriately for generalized anxiety disorder which could be contributing to his alcoholism. He is stable from a medical standpoint of view to be discharged and in good spirits to be going home all concerns were addressed to the best of my abilities Assessment Assessment Physical Exam General: No acute distress, Other (sedated) Heart: Regular rate, Normal S1, Normal S2 Lungs: Clear Abdomen: Normal bowel sounds, Soft, No tenderness, No hepatosplenomegaly, No masses Extremities: No clubbing, No cyanosis, No edema, Normal pulses, No tenderness/swelling Skin: No rashes, No breakdown, No significant lesion Discharge Information Condition at Discharge: Improved Follow Up: Weeks Disposition/Orders: D/C to Home Scheduled Buspirone Hcl (Buspirone Hcl) 5 Mg Tablet, 1 TAB PO BID for anxiety, #60 Ref 2 Prescribed by: BARRETT ROCHA MD on 03/19/20 1058 Folic Acid (Folic Acid) 0.8 Mg Capsule, 1 CAP PO DAILY for supplement for 30 Days, #30 Ref 0 Prescribed by: BARRETT ROCHA MD on 03/19/20 1058 Lisinopril/Hydrochlorothiazide (Lisinopril-Hctz 10-12.5 Mg Tab) 1 Each Tablet, 1 TAB PO DAILY for BP, #30 Ref 5 (Reported) Entered as Reported by: MASOUD LERNER on 03/18/201030 Last Action: New Order on 03/18/201030 by MASOUD LERNER Thiamine HCl (B-1) 100 Mg Tablet, 100 MG PO DAILY for supplement for 30 Days, #30 Ref 1 Prescribed by: BARRETT ROCHA MD on 03/19/20 1058 Scheduled PRN Lorazepam (Ativan) 1 Mg Tablet, 1 MG PO BID PRN for ANXIETY / AGITATION, (Reported) Entered as Reported by: MASOUD LERNER on 03/18/201030 Last Action: New Order on 03/18/201030 by MASOUD LERNER Promethazine Hcl (Promethazine Hcl) 25 Mg Tablet, 1 TAB PO PRN Q6HRS PRN for VOMITING, #20 (Reported) Entered as Reported by: MASOUD LERNER on 03/18/20 103 Last Action: New Order on 03/18/201030 by MASOUD LERNER Justicifation of Admission Dx: Justifications for Admission: Justification of Admission Dx: Yes Chronic Renal Failure: Electrolyte Abnormality BARRETT ROCHA MD Mar 19, 2020 11:30
[2020-03-19 12:00] VITALS: BP 125/90
--- NOTE | 2020-03-19 12:17 | NUR ---
SW following. Discussed with RN, discharge order for home with self care. RN advised no SW needs. Pt is from [place], cleared by PAT team to discharge home. No further SW needs.
--- NOTE | 2020-03-19 12:39 | NUR ---
This RN removed IV, and discharged patient with AA information in his local area. Patient wheeled out by wheelchair by NA to main entrance and family. Tolerated well.
== END 2020-03-19 12:39 | disposition home or self-care (01) | DRG 682 ==
LOC: 1 WEST ICU 12:50 → 5 NORTH 03-19 07:08
PROVIDERS: ADMIT Internal Medicine; ATTEND Internal Medicine
PROC: 5A09457 Assistance with Respiratory Ventilation, 24-96 Consecutive Hours, Continuous Positive Airway Pressure (ICD-10-PCS; principal; 2020-03-17)
DX: N17.0 Acute kidney failure with tubular necrosis (principal); G93.41 Metabolic encephalopathy; E87.1 Hypo-osmolality and hyponatremia; F10.239 Alcohol dependence with withdrawal, unspecified; Z68.41 Body mass index [BMI] 40.0-44.9, adult; D72.829 Elevated white blood cell count, unspecified; E83.42 Hypomagnesemia; E87.6 Hypokalemia; F41.1 Generalized anxiety disorder; I10 Essential (primary) hypertension; K70.10 Alcoholic hepatitis without ascites; Z82.49 Family history of ischemic heart disease and other diseases of the circulatory system; E66.01 Morbid (severe) obesity due to excess calories; F41.9 Anxiety disorder, unspecified; I95.9 Hypotension, unspecified
CPT/HCPCS: 36415; 80048; 80053; 83735; 85025; 85610; 94660; J1630; J2060; J3411; J3475; J3480; J3486; J3490; J7030; J7120; G0378